=== PATIENT | male | born 1995 | race Caucasian/White ===

== ENCOUNTER 2020-10-18 08:25 | Emergency (ER) | payer SELFPAY ==
[2020-10-18 08:30] VITALS: BP 123/74; PULSE 52; RESP 20; TEMP 36; O2SAT 99
--- NOTE | 2020-10-18 08:57 | W.ED.GENAD ---
Discharge Plan Disposition Patient Disposition: HOME Condition: Stable Discharge Details Clinical Impression: Hernia, umbilical, Abnormal urinalysis Primary Care Provider: None,None ED Provider: Liane Nolasco Home Meds and New Rx's Prescriptions: New cephalexin 500 mg capsule 500 mg PO QID Qty: 14 RF: 0 Continued lamotrigine 200 mg tablet 200 mg PO HS RF: 0 acetaminophen 500 mg Tablet 1,000 mg PO QID PRNRF: 0 oxybutynin chloride 5 mg tablet 5 mg PO BID RF: 0 fluoxetine 20 mg capsule 20 mg PO DAILY RF: 0 Discharge Instructions Instructions: Umbilical Hernia (ED) Additional Instructions: Please return immediately to the emergency department if you develop any new or worsening symptoms, if your condition does not improve as expected, or if you become otherwise concerned. It is extremely important that you call soon as possible to make an appointment to be seen in follow-up for this visit by your primary care doctor. It is also extremely important that you attend your scheduled appointment with surgery this , 10/21/2020 at 1:30 PM. Referrals: De Ritchie MD [ [facility] STAFF PHYSICIAN] - Lauren Chavez MD [ [facility] STAFF PHYSICIAN] - Discharge Data Discharge Date/Time-TO BE ENTERED AT DEPARTURE: 10/18/20 09:29 Medical Decision Making Raymundo Morales is a 24-year-old man who presented to the emergency department with pain that has umbilical hernia. Exam patient is very well and nontoxic-appearing. There is focal abdominal tenderness at the site of the umbilical hernia which is approximately 1 cm in size, soft, mildly tender to palpation. There is no overlying skin change. No other abdominal tenderness. Hernia is easily reducible, protrudes rapidly during my encounter without position changes. Exam/history at this time is not consistent with incarcerated hernia, bowel ischemia, acute emergent intra-abdominal process, other acute emergent medical condition. I discussed patient with Dr. Chavez of surgery, patient to be seen by surgery , 10/21/2020 at 1:30 PM for further evaluation. UA sent from triage, shows nitrates, WBCs. I discussed findings with patient. Patient states he has no urinary symptoms, will send C/G and culture. Patient states that he feels very well and would like to be discharged at this point. I had a lengthy discussion with Patient regarding return to emergency department precautions, home care, and importance of outpatient follow-up. Pt verbalizes understanding of the plan and is amenable. Patient discharged to home with clear plan for outpatient follow-up. All questions were answered. Disposition decision was made weighing the risks and benefits of hospitalization versus outpatient treatment, the risk for further decompensation, and the patient's wishes. Medical Records Medical records reviewed: Yes I reviewed the patient's medical records. Lab Data Lab results reviewed: Yes I reviewed the patient's lab results. Labs: 10/18/20 08:02 Urine - Reflex from Ua Urine Culture - Pending Laboratory Tests Range/Units 10/18/20 08:02 Urine Color (Yellow) Yellow Urine Clarity (Clear) Sl cloudy Urine pH (5-8) 7.0 Ur Specific [place]worth (1.005-1.025) 1.020 Urine Protein (Negative) mg/dL Negative Urine Ketones (Negative) mg/dL Negative Urine Blood (Negative) Trace-intact H Urine Nitrite (Negative) Positive H Urine Bilirubin (Negative) Negative Urine Urobilinogen (Up TO 0.2) EU/dL 0.2 Ur Leukocyte Esterase (Negative) Trace H Urine RBC (0-2) HPF 0-2 Urine WBC (0-5) HPF 20-50 H Ur Epithelial Cells (Negative) HPF Negative Urine Crystals (Negative) HPF Negative Urine Bacteria (Negative) HPF Many Urine Casts (Negative) LPF Negative Urine Mucus (Negative) Negative Ur Culture Indicated? Yes Urine Glucose (Negative) mg/dL Negative HPI General Mode of arrival: ambulatory. Date/Time Provider Initiated Documentation: 10/18/20 08:45. Limitations to Documentation: no limitations. Information obtained by: patient. HPI Narrative: Raymundo Morales is a 24-year-old man without reported history of major medical problems presenting to emergency department with pain at site of his umbilical hernia. Patient reports that he had an inguinal hernia repaired approximately 1 year ago without further complication, has had umbilical hernia for years. Patient reports that umbilical hernia has not caused him pain in the past. Patient states that he was getting out of the shower this morning when he felt pain at the site of his umbilical hernia which was severe. Patient reports that he took Tylenol and pain has improved significantly. He denies any other abdominal pain or any other pain. Patient reports that he has a bowel movement typically once a week, last bowel movement was 3 days ago and normal for him. He denies fevers, cough, shortness of breath, vomiting, numbness, weakness, rash. Patient states he has been eating and drinking as usual. Related Data Home Medications Medication Instructions Recorded Confirmed acetaminophen 1,000 mg PO QID PRN 10/18/20 10/22/20 fluoxetine 20 mg PO DAILY 10/18/20 10/22/20 lamotrigine 200 mg PO HS 10/18/20 10/22/20 oxybutynin chloride 5 mg PO BID 10/18/20 10/22/20 cephalexin 500 mg PO QID #14 cap 10/22/20 Previous Rx's Medication Instructions Recorded cephalexin 500 mg PO QID #14 cap 10/22/20 Allergies Allergy/AdvReac Type Severity Reaction Status Date / Time tizanidine Allergy severe Unverified 10/21/20 13:44 body rash aspirin AdvReac Nausea Unverified 10/21/20 13:44 General Stated Complaint: Abd Prob MINO: 3 Review of Systems Narrative: Constitutional: denies fevers Eyes: denies eye pain ENT: denies ear pain, dental pain, sore throat Cardiovascular: denies chest pain Respiratory: denies SOB, cough GI: denies constipation, vomiting, diarrhea, reports abdominal pain at umbilical hernia site : denies flank pain MSK: denies back pain, neck pain, arthralgias, myalgias Skin: denies rash Neuro: denies headaches, numbness, weakness PFSH Social History Smoking risk assessment performed?: No Alcohol Intake: current Alcohol Intake frequency: a few times a month Drug use: Occasionally Substance use type: marijuana Do you feel safe at home: Yes Do you feel safe in your relationship?: Yes Exam Narrative Exam Narrative: Constitutional: well and [id number], pleasant, conversing normally HENT: head atraumatic/normocephalic/normal inspection, mucous membranes moist Eyes: conjunctiva normal, sclera normal, pupils 3mm b/l Neck: no stridor, normal ROM, trachea midline Resp: normal work of breathing, speaking in full sentences Cardio: normal rate, normal rhythm GI: abdomen soft, approximately 1 cm umbilical hernia that is easily reducible patient lying supine, soft, minimally tender to palpation (reproduces pain), no skin changes overlying hernia, no other abdominal tenderness to palpation, no rebound, no guarding, no mass, non-distended Skin: warm, dry, normal color, no rash Neuro: alert, not altered, grossly non-focal, normal tone Ext: Moving all extremities equally Psych: normal mood, normal affect, normal behavior Course Vital Signs Vital signs: Vital Signs Temperature 36.0 C L 10/18/20 08:30 Pulse 52 L 10/18/20 08:30 Respiratory Rate 20 10/18/20 08:30 Blood Pressure 123/74 10/18/20 08:30 Pulse Oximetry 99 10/18/20 08:30 Temperature 36.0 C L 10/18/20 08:30 Temperature Source Skin 10/18/20 08:30 Pulse 52 L 10/18/20 08:30 Respiratory Rate 20 10/18/20 08:30 Respiratory Effort Non-Labored 10/18/20 08:48 Blood Pressure 123/74 10/18/20 08:30 Blood Pressure Position Sitting 10/18/20 08:30 Pulse Oximetry 99 10/18/20 08:30 Oxygen Delivery Method Room Air 10/18/20 08:30 Oxygen Flow Rate 0 10/18/20 08:30 Pain Level 5 10/18/20 08:30
[2020-10-18 09:04] LABS: Bilirubin Negative (Negative); Blood Trace-intact (Negative); Clarity Sl Cloudy (Clear); Glucose Negative (Negative); Ketones Negative (Negative); Leukocyte Esterase Trace (Negative); Nitrite Positive (Negative); Urobilinogen 0.2 EU/dL (Up TO 0.2)
[2020-10-18 09:15] LABS: Bacteria Many HPF (Negative); C & S Indicated? Yes; Casts Negative LPF (Negative); Crystals Negative HPF (Negative); Epithelial Cells Negative HPF (Negative); Mucus Negative (Negative); RBC 0-2 HPF (0-2); WBC 20-50 HPF (0-5)
--- NOTE | 2020-10-21 08:27 | W.ED.FU ---
Follow Up Plan: caled and left voicemail to discuss abnormal urine culture growing e coli. no answer, asked to call back
--- NOTE | 2020-10-22 08:58 | W.ED.FU ---
Follow Up Plan: Left a voicemail on 10/22/2020 at 9:00 in the morning to return phone call
--- NOTE | 2020-10-22 09:24 | W.ED.FU ---
Prescription for Keflex sent over to [facility], discussed results with patient and given urology referral Denies fever or chills, reports persistent mild lower abdominal pain
--- NOTE | 2020-10-22 09:35 | NUR.NOTE ---
Nursing Note: Care management referral send 10/22/20 @ 0935 - [facility]
== END 2020-10-18 09:29 | disposition home or self-care (01) ==
PROVIDERS: Emergency Provider Student in an Organized Health Care Education/Training Program
DX: K42.9 Umbilical hernia without obstruction or gangrene (principal); R82.90 Unspecified abnormal findings in urine
CPT/HCPCS: 36415; 87077; 99283; 81003; 81015; 87086; 87186

== ENCOUNTER 2020-12-03 02:16 | Outpatient (CLI) | payer SELFPAY ==
[2020-12-03 10:01] LABS: Source Nasal/Nares
[2020-12-03 15:53] LABS: COVID-19 PCR Negative (Negative)
== END 2020-12-03 02:17 | disposition home or self-care (01) ==
LOC: LBO 02:16
PROVIDERS: Visit Provider Surgery
DX: Z20.822 Contact with and (suspected) exposure to COVID-19 (principal); Z01.818 Encounter for other preprocedural examination
CPT/HCPCS: 87635

== ENCOUNTER 2020-12-08 06:12 | Day surgery (SDC) | payer OTHER, SELFPAY ==
[2020-12-08] VITALS (7 sets, daily range): BP systolic 118–150; BP diastolic 72–112; PULSE 49–80; RESP 15–17; TEMP 36.4–36.7; O2SAT 96–99; BMI 19.1
--- NOTE | 2020-12-08 06:30 | ROE_ITS ---
Date of service: 12/08/20 Time of Service: 08:51 Operative Note Operative Note DATE OF PROCEDURE: 12/08/20 PRE-OP DIAGNOSIS: Umbilical hernia POST-OP DIAGNOSIS: same PROCEDURE: Primary Umbilical hernia repair SURGEON: Lauren Chavez OPTOMETRIST PRESIDENT/PRACTICE OWNER: Lynne Bertrand ANESTHESIA TYPE: Local By Surgeon, General LMA/ETT (ASA 2/ Liberty Greenfield CRNA) and Primary Nerve Block (bilateral rectus block) Refer to Anesthesia Record ESTIMATED BLOOD LOSS: 3 PATHOLOGY: none sent COMPLICATIONS: None Patient was transported to: PACU Patient's condition: stable Implants: None Indications: A// Patient has an umbilical hernia which has been progressively becoming more painful and at times difficult to reduce. Discussed the options of proceeding with umbilical hernia repair with mesh. Discussed the potential risks and benefits to include bleeding, infection, seroma, bowel injury, hematoma or allergic reaction to the mesh. Questions were answered to patient satisfaction. No guarantees were made or implied. He would like to proceed with surgical repair. Also discussed the above with his guardian Arcelia. P// Surgical repair of umbilical hernia. Findings: Small 0.5 cm umbilical hernia defect Procedure Description: After informed consent was obtained the patient was taken to the operating room and placed in a supine position. Monitors and SCDs were applied and a timeout was done. The patient's name, date of , procedure type, procedure site, allergies to medications, preoperative antibiotic, and DVT prophylaxis were all reviewed. Fire risk was assessed. Next anesthesia did a bilateral rectus block under ultrasound guidance. Please see their separate dictation. Once anesthesia was done the abdomen was prepped and draped in a sterile surgical fashion. 0.25% Bupivacaine was injected into the dermis just under the umbilicus. An incision was made with a 10 blade under the umbilicus. Dissection was done with cautery through the umbilical stalk down to the fas adrian. The hernia defect was identified and measured 0.5 cm. There was a small amount of fat through the umbilical defect. The fascia was closed with 0 vicryl figure of eight suture. 0 Vicryl was used to secure the umbilicus down to the fascia. The dermis was re-approximated with a running 4-0 Vicryl. The skin was cleaned and dried and skin affix was applied. The patient was woken up and taken back to recovery in stable condition. There were no immediate complications. Sponge, instrument and needle counts were correct at the end of the case x2.
--- NOTE | 2020-12-08 06:32 | W.PREOPHP ---
Date of service: 12/08/20 Assessment and Plan Assessment and plan (1) Hernia, umbilical: Status: Acute Assessment and plan: A// Patient has an umbilical hernia which has been progressively becoming more painful and at times difficult to reduce. Discussed the options of proceeding with umbilical hernia repair with mesh. Discussed the potential risks and benefits to include bleeding, infection, seroma, bowel injury, hematoma or allergic reaction to the mesh. Questions were answered to patient satisfaction. No guarantees were made or implied. He would like to proceed with surgical repair. Also discussed the above with his guardian Arcelia. P// Surgical repair of umbilical hernia. 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 He states that he has had the umbilical hernia for a number of years and it has progressively become more uncomfortable and at times is difficult to reduce. He would like to have this surgically repaired. He denies any erythema, swelling or pain around his umbilicus. He denies any chest pain, palpitations, dyspnea or dyspnea with exertion. He denies any personal or family history of adverse reactions to anesthesia. 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 He denies any history of [place], stroke, seizure, bleeding or clotting disorder. He denies having any metal implanted in his body. There have been no changes in his health since he was last seen Review of Systems Cardiovascular Cardiovascular: Denies chest pain, Denies chest pain at rest, Denies irregular heart rhythm, Denies dyspnea and Denies dyspnea on exertion Respiratory Respiratory: Denies cough, Denies dyspnea and Denies dyspnea on exertion Gastrointestinal Gastrointestinal: Reports as per HPI Genitourinary Genitourinary: Denies dysuria, Denies urinary incontinence and Denies urinary urgency Endocrine Endocrine: Reports system reviewed and no additional complaints, except as documented Hematologic/Lymphatic Hematologic/Lymphatic: Denies easy bruising and Denies lymphadenopathy [facility] Medical History ADHD History of urinary retention 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 Do you feel safe at home: Yes Do you feel safe in your relationship?: Yes Meds Allergies and Home Medications Allergies Allergy/AdvReac Type Severity Reaction Status Date / Time tizanidine Allergy Severe severe Verified 12/08/20 06:26 body rash aspirin AdvReac Intermediate Nausea Verified 12/08/20 06:26 Home Medications Medication Instructions Recorded Confirmed Type acetaminophen 1,000 mg PO QID PRN 10/18/20 12/08/20 History fluoxetine 20 mg PO DAILY 10/18/20 12/08/20 History lamotrigine 200 mg PO HS 10/18/20 12/08/20 History oxybutynin chloride 5 mg PO BID 10/18/20 12/08/20 History Exam Const General: healthy appearing and comfortable [facility] Head: normocephalic and atraumatic Resp Effort & Inspection: normal respiratory effort Auscultation: clear to auscultation bilaterally Cardio Rate: regular rate Rhythm: regular rhythm Heart Sounds: no click, no gallops and no murmurs GI Inspection: normal to inspection Palpation: soft, hernia umbilical and nontender
--- NOTE | 2020-12-08 06:34 | PDOC.DSDIS_ITS ---
Discharge Plan Disposition Patient Disposition: HOME Condition: Good Discharge Details Reason For Visit: umbilical hernia Attending Provider: Lauren Chavez Primary Care Provider: None,None Home Meds and New Rx's Prescriptions: Continued lamotrigine 200 mg tablet 200 mg PO HS RF: 0 acetaminophen 500 mg Tablet 1,000 mg PO QID PRNRF: 0 oxybutynin chloride 5 mg tablet 5 mg PO BID RF: 0 fluoxetine 20 mg capsule 20 mg PO DAILY RF: 0 Discharge Instructions Additional Instructions: Activity at Home after surgery: 1. Make sure you walk outside at least 4 times per day 2. You should be able to climb a flight of stairs 3. No driving while in pain or taking pain medications 4. No strenuous activity or heavy lifting for 4 weeks (open surgery) Diet, Nutrition, & wound healin. Avoid alcohol until after you are recovered from your surgery 2. Make sure to eat plenty of lean protein (meat, fish, eggs, cottage cheese, beans) 3. Eat a variety of fruits and vegetables. Eat plenty of high fiber foods to avoid constipation. 4. Drink plenty of liquids to stay hydrated and avoid constipation Pain Medications: 1. Tylenol 650mg every 6 hours as needed. 2. If a narcotic has been prescribed take as directed only for breakthrough pain For Constipation: 1. Take Milk of Magnesia or MiraLax as needed for constipation Other: 1. You may shower daily. Do not scrub the incisions 2. Do not soak the incisions for 1 week 3. You may alternate ice and heat as needed for pain and swelling Wound Care: 1. Keep the incisions clean and dry Please call our office if you develop: 1. Fevers >101.5 2. Nausea or Vomiting 3. Worsening pain 4. Redness and thick discharge from the wounds If after hours please call the Hospital at and ask to speak to the on-call surgeon Referrals: Lauren Chavez MD [ [facility] STAFF PHYSICIAN] - 12/24/20 9:30 am Activity:: as above Remove Dressings/Wound Care:: Do Not Remove Shower/Bathe:: 24 hours Diet:: As Tolerated Discharge Orders Discharge Orders: Discharge Order (Routine); Ordered 12/08/20 Ordered By: Lauren Chavez DS: Diagnosis Discharge Diagnosis (1) Hernia, umbilical: Status: Acute
[2020-12-08] MEDS: Lactated Ringers 1,000 ML 80 ML IV (06:48)
--- NOTE | 2020-12-08 07:16 | W.ANESPRE ---
General Info Date of Service Date Performed: 12/08/20 Height: 5 ft Weight: 44.5 kg Body Mass Index (BMI): 19.1 Surgical Procedure: Operation Date: 12/08/20 07:55 Proposed Procedures Side Surgeon p Herniorrhaphy Umbilical Lauren Chavez MD Meds Allergies and Home Medications Allergies Allergy/AdvReac Type Severity Reaction Status Date / Time tizanidine Allergy Severe severe Verified 12/08/20 06:26 body rash aspirin AdvReac Intermediate Nausea Verified 12/08/20 06:26 Home Medication Medication Instructions Recorded acetaminophen 1,000 mg PO QID PRN 10/18/20 fluoxetine 20 mg PO DAILY 10/18/20 lamotrigine 200 mg PO HS 10/18/20 oxybutynin chloride 5 mg PO BID 10/18/20 Current Visit Medications: Current Medications Generic Name Dose Route Start Last Admin Trade Name Freq PRN Reason Stop Dose Admin Ringer's Solution 1,000 mls @ 80 mls/hr 12/08/20 06:00 12/08/20 06:48 IV 01/06/21 23:59 80 mls/hr INFUSION MIGDALIA Administration Cefazolin Sodium/Dextrose 2 gm in 50 mls @ 100 mls/hr 12/08/20 06:00 Ancef Duplex IVPB 01/06/21 23:59 PREOP MIGDALIA Ondansetron HCl 4 mg/ Sodium 52 mls @ 200 mls/hr 12/08/20 06:35 Chloride IVPB Q6H PRN PRN IV Miscellaneous Supplies 1 each 12/08/20 06:00 Iv Access IV 01/06/21 23:59 DIRECTED MIGDALIA Oxycodone HCl 5 mg 12/08/20 06:35 Oxycodone 5 Mg Tab PO Q3H PRN PRN Pain Sodium Chloride 0 ml 12/08/20 06:00 Normal Saline Flush 10 Ml Syr IV 01/06/21 23:59 PRN PRN Sodium Chloride 0 ml 12/08/20 06:00 Normal Saline 10 Ml Vial IJ 01/06/21 23:59 DIRECTED PRN Sterile Water 0 ml 12/08/20 06:00 Water,Injection,Sterile 10 Ml Vial IJ 01/06/21 23:59 DIRECTED PRN PFSH Active Problems Active Problems: Problem Status Onset Code Hernia, umbilical K42.9 Abnormal urinalysis R82.90 Medical History Medical History ADHD History of urinary retention Meningoencephalitis Pt. states this was due to [place] virus 2014 Oppositional defiant disorder Spastic paraparesis Surgical History Surgical History Hx of gastrostomy Tobacco Smoking/Tobacco Use Status: Current every day Tobacco Type: cigarettes Alcohol Alcohol Intake: current Alcohol intake frequency: a few times a month Alcohol type: beer and hard liquor Substance Use Substance use: Daily Substance use type: marijuana Details: Smoked marijuana last night. Vital Signs and Lab Results Vital Signs Most Recent Vital Signs in EMR: Most Recent Vital Signs Temp Pulse Resp BP Pulse Ox 36.7 C 64 16 141/88 H 99 12/08/20 06:29 12/08/20 06:29 12/08/20 06:29 12/08/20 06:29 12/08/20 06:29 Lab Results Blood Type / Crossmatch: No Data to Display Complete Blood Count: No Data to Display Complete Metabolic Panel: No Data to Display Liver Function Panel: No Data to Display Coagulation Panel: No Data to Display Cardiac Panel: No Data to Display Arterial Blood Gas: No Data to Display Venous Blood Gas: No Data to Display Pancreas Panel: No Data to Display Thyroid Panel: No Data to Display Infectious Disease: Coronavirus (COVID-19)(PCR) Negative (Negative) 12/03/20 08:43 12/03/20 Coronavirus 2019 Source Nasal/Nares 12/03/20 08:43 12/03/20 Blood Cultures: No Data to Display Toxicology Panel: No Data to Display Anesthesia Assessment and Plan Anesthesia History Personal History: No History of Anesthesia Complications Family History: No Family History of Anesthesia Complications Exercise Tolerance Exercise Tolerance: Metabolic Equivalents>4 Pertinent Negatives Pertinent Negatives: No Symptoms of GERD Cardiac & Pulmonary Exam Cardiac Exam: Normal S1/S2 Heart Sounds Pulmonary Exam: Clear Bilateral Breath Sounds Airway Exam Known Difficult Airway: No Mallampati Class: 1 Mouth Opening: Normal (> 3cm) Thyromental Distance: Greater than 3 cm Neck Range of Motion: Full ROM Neck Circumference: Normal Teeth Condition: Normal Dentition ASA Classification ASA Score: ASA 2 Emergency Case?: No NPO Status NPO Status: NPO Clears >2 hours, Solids >8 hours Anesthesia Plan Resuscitation Status: Full Code Anesthesia Technique: General Anesthesia Airway Planned: LMA Pain Management: Surgeon and patient request nerve block Monitors Used: Standard Monitors
[2020-12-08] MEDS: ceFAZolin 2 GM/50 ML BAG IVPB (08:15)
--- NOTE | 2020-12-08 08:45 | W.ANESNERVE ---
Nerve Block Single Injection Procedure Date and Time Date Performed: 12/08/20 Procedure Start: 08:20 Location Where Procedure Performed Procedure Location: Operating Room Procedure Stop: 08:35 Reason Performed: Postoperative Analgesia Requesting Provider: Lauren Chavez Timeout Performed Timeout Performed: Yes Monitoring Used ECG, Blood Pressure and ETCO2 Sterility Sterility: Hand Hygiene, Surgical Cap, Surgical Mask and Sterile Gloves Sedation Given During Procedure Sedation Given (Indicate Dose Given): No Sedation given Patient Mental Status Patient Mental Status: Performed under general anesthesia Nerve Block 1st Nerve Block: Laterality: Bilateral Block Type: Rectus Sheath (Bilateral) Needle / Catheter Used: 120mm SonoPlex II Local Anesthetic Bolus (Indicate Dose Given): None, Injected in 3-5ml increments after negative blood aspiration, Half of Total block solution given into each side, Bupivacaine 0.25% Dose:: 30ml and Exparel Dose:: 10ml Additives (Indicate Dose Given): None Ultrasound: Sterile probe cover and gel used Ultrasound Image Saved?: Yes Nerve Stimulator: Not Used Paresthesia: None Procedure Tolerated: No Complications Procedure Outcome: Successful Procedure Comment: camilo greenfield crna right side reta guidry crna left side Performed By: Delmer Greenfield
[2020-12-08] MEDS: Bupivacaine 0.25% Pres-Free 30 ML VIAL (09:01)
[2020-12-08] MEDS: Lactated Ringers 1,000 ML 30 ML IV (09:02)
--- NOTE | 2020-12-08 11:57 | W.ANESPOSTOP ---
Postoperative Evaluation Date, Time and Location Date Performed: 12/08/20 Time Performed: 11:00 Patient Location: Day Surgery Unit Vital Signs Most Recent Imported Vital Signs: Most Recent Vital Signs Temp Pulse Resp BP Pulse Ox 36.6 C 52 L 17 131/82 99 12/08/20 10:20 12/08/20 10:20 12/08/20 10:20 12/08/20 10:20 12/08/20 10:20 Pain Score Most Recent Pain Score: Most Recent Pain Score Pain Level 0 12/08/20 10:20 Assessment Mental Status: Awake (Alert & Oriented to Patient Baseline) Airway and Respiratory Function: Patent airway with normal (patient baseline) respiratory exam Cardiovascular Function: Hemodynamically Stable Hydration Status: Adequately Hydrated Nausea & Vomiting: No Nausea or Vomiting Pain: Pt. Denies Any Pain Peripheral Nerve Block: Regional nerve block not resolved at time of post operative discharge
== END 2020-12-08 10:30 | disposition home or self-care (01) ==
PROVIDERS: Visit Provider Surgery
PROC: (CPT 49585; principal; 2020-12-08 07:45)
DX: K42.9 Umbilical hernia without obstruction or gangrene (principal); G89.18 Other acute postprocedural pain; Z86.19 Personal history of other infectious and parasitic diseases
CPT/HCPCS: 49585; 76942; J0690; J1885

== ENCOUNTER 2021-11-05 12:05 | Emergency (ER) | payer MEDICARE, SELFPAY ==
[2021-11-05 12:11] VITALS: BP 143/103; PULSE 92; RESP 18; TEMP 37.2; O2SAT 96
--- NOTE | 2021-11-05 12:48 | ED.GENADUL_ITS ---
Discharge Plan Disposition Patient Disposition: HOME Condition: Stable Discharge Details Clinical Impression: Chronic pain of both shoulders Primary Care Provider: None,None ED Provider: Oksana Moseley Home Meds and New Rx's Prescriptions: No Action lamotrigine 200 mg tablet 200 mg PO HS Label Comments: TAKE 1 TABLET BY MOUTH AT BEDTIME acetaminophen 500 mg Tablet 1,000 mg PO QID PRN oxybutynin chloride 5 mg tablet 5 mg PO BID Label Comments: TAKE 1 TABLET BY MOUTH TWICE DAILY FOR URINARY INCONTINENCE fluoxetine 20 mg capsule 20 mg PO DAILY Label Comments: TAKE 1 CAPSULE BY MOUTH ONCE DAILY FOR DEPRESSION albuterol sulfate 90 mcg/actuation HFA aerosol inhaler 2 inh INHALATION DAILY Label Comments: INHALE 2 PUFFS BY MOUTH EVERY 6 HOURS NEEDED (RETURN OR CALL IF NEEDED MORE THAN TWICE WEEKLY) Discharge Instructions Instructions: Shoulder Pain (ED) Additional Instructions: Your x-rays today are reassuring and show no evidence of acute concerning or significant findings. Apply ice to the affected area several times daily for 20 minutes at a time. Alternate tylenol and motrin as needed and directed for pain. Follow-up with your primary care doctor in 1 week and for referral to orthopedics if your symptoms do not improve or worsen. Return to the emergency department with any worsening or new concerning symptoms. Referrals: Clyde Deleon MD [ [facility] STAFF PHYSICIAN] - Discharge Data Discharge Date/Time-TO BE ENTERED AT DEPARTURE: 11/05/21 14:49 Discharge Physician: Oksana Moseley Medical Decision Making 25-year-old male presents with bilateral shoulder pain for the past month. Pain is worse with some movement and shoulder use. Vitals within normal limits. Patient appears comfortable and nontoxic. He has pain with range of motion in his shoulders but no obvious limitation of motion, trauma, deformity or cellulitis. He has neurovascular intact. Differential diagnosis includes shoulder strain versus sprain, tendinitis. History and presentation does not appear consistent with dislocation, fracture, rotator cuff injury or adhesive capsulitis. Patient states he would like x-rays. Will obtain bilateral shoulder x-rays and give a dose of ibuprofen and Tylenol. Imaging reviewed and negative. Patient reassessed and he feels better. Advised to alternate Tylenol and Motrin and apply ice to the affected area several times daily. Advised to follow-up with his primary care doctor and for referral to orthopedics if his symptoms do not improve or worsen. Usual and customary return precautions given prior to discharge. Medical Records Medical records reviewed: Yes I reviewed the patient's medical records. Imaging Data Radiologic Study: Radiologist's impression: XR Right Shoulder Exam date and time: 11/05/2021 1:54 PM Age: 25 years old Clinical indication: Other: Shoulder pain, R/O FX or arthritis TECHNIQUE: Imaging protocol: XR Right shoulder. Views: 2 or more views. COMPARISON: No relevant prior studies available. FINDINGS: Bones/joints: No fractures or suspicious osseous lesions are identified. Acromioclavicular and glenohumeral alignment are anatomic. Joint spaces are maintained. There are no significant osseous productive changes. The humeral head is not high-riding. Soft tissues: Periarticular soft tissues are unremarkable. IMPRESSION: No abnormality identified in the right shoulder. XR Left Shoulder Exam date and time: 11/05/2021 1:57 PM Age: 25 years old Clinical indication: Other: Shoulder pain, R/O FX or arthritis TECHNIQUE: Imaging protocol: XR Left shoulder. Views: 2 or more views. COMPARISON: No relevant prior studies available. FINDINGS: Bones/joints: No fractures or suspicious osseous lesions are identified. Acromioclavicular and glenohumeral alignment are anatomic. Joint spaces are maintained. There are no significant osseous productive changes. The humeral head is not high-riding. Soft tissues:? Periarticular soft tissues are unremarkable. IMPRESSION: No abnormality identified in the left shoulder. HPI General Mode of arrival: ambulatory . Date/Time Provider Initiated Documentation: 11/05/21 12:15 . Limitations to Documentation: no limitations . Information obtained by: patient . HPI Narrative: Patient is a 25-year-old male presents with bilateral shoulder pain for the past month. He states the pain initially started in his left shoulder and now has progressed to involve his right shoulder. He states he frequently rides his bike but denies any known injury. 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 He denies any fever, chest pain, back pain or difficulty breathing. Related Data Home Medications Medication Instructions Recorded Confirmed acetaminophen 500 mg tablet 1,000 mg PO QID PRN 10/18/20 11/05/21 fluoxetine 20 mg capsule 20 mg PO DAILY 10/18/20 12/08/20 lamotrigine 200 mg tablet 200 mg PO HS 10/18/20 12/08/20 oxybutynin chloride 5 mg tablet 5 mg PO BID 10/18/20 11/05/21 albuterol sulfate 90 mcg/actuation 2 inh inhalation DAILY 11/05/21 11/05/21 aerosol inhaler Allergies Allergy/AdvReac Type Severity Reaction Status Date / Time tizanidine Allergy Severe severe Verified 11/05/21 12:14 body rash aspirin AdvReac Intermediate Nausea Verified 11/05/21 12:14 General Stated Complaint: Orthopedic IMNO: 4 Review of Systems All systems reviewed & are unremarkable except as noted in HPI and below Constitutional Constitutional: Denies chills, Denies excessive sweating, Denies fatigue, Denies fever(s), Denies weakness and Denies weight loss Eyes Eyes: Reports system reviewed and no additional complaints, except as documented and Denies blurry vision ENT Ears, Nose, Mouth, and Throat: Denies vertigo, Denies dizziness, Denies otalgia, Denies nasal congestion, Denies sore throat and Denies throat swelling Cardiovascular Cardiovascular: Denies chest pain, Denies syncope, Denies rapid heart rate and Denies dyspnea Respiratory Respiratory: Denies chest congestion, Denies cough, Denies pain on inspiration and Denies dyspnea Gastrointestinal Gastrointestinal: Denies abdominal pain, Denies diarrhea and Denies vomiting Genitourinary Genitourinary: Denies hematuria, Denies dysuria and Denies flank pain Musculoskeletal Musculoskeletal: Denies back pain and Denies joint swelling Comments: b/l shoulder pain Integumentary/Breasts Skin/Breast: Denies lesions and Denies rash Neurologic Neurologic: Denies behavioral changes, Denies confusion, Denies vertigo, Denies dizziness, Denies syncope, Denies localized weakness and Denies weakness Psychiatric Psychiatric: Denies behavioral changes, Denies confusion and Denies depression Endocrine Endocrine: Denies excessive sweating and Denies fatigue Hematologic/Lymphatic Hematologic/Lymphatic: Denies easy bruising and Denies lymphadenopathy Allergic/Immunologic Allergic/Immunologic: Denies throat swelling PFSH All Active Problems (Updated 11/05/21 @ 14:44 by Oksana Moseley DO) Chronic pain of both shoulders (Acute) Hernia, umbilical (Acute) Abnormal urinalysis (Acute) Medical History ADHD History of urinary retention 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 Do you feel safe at home: Yes Do you feel safe in your relationship?: Yes Exam Const General: cooperative and healthy appearing Orientation: alert, awake and oriented x3 HENMT Head: normal to inspection Ears: hearing grossly normal bilaterally, external ears normal and TM's normal bilaterally General nose exam: external nose normal Face and sinus: normal facial exam Mouth: oral mucosae normal Teeth and gingiva: dentition normal Throat: posterior oropharynx normal Eyes General: appearance normal, both eyes and all related structures Eyelids: eyelids normal Pupils: PERRL EOM: EOM intact bilaterally Neck Neck: normal visual inspection Lymphatic: no lymphadenopathy noted Chest Chest: normal inspection of the chest Resp Effort & Inspection: normal respiratory effort and able to speak in complete sentences Auscultation: clear to auscultation bilaterally Cardio Rate: regular rate Rhythm: regular rhythm GI Inspection: normal to inspection Palpation: soft, not firm, no guarding, no hepatosplenomegaly, no masses and nontender Auscultation: normal bowel sounds Back/Spine/Pelvis Back: no CVA tenderness Skin General skin exam: no rashes or lesions noted Neuro General: patient alert and patient awake Cognition: normal cognition Speech: speech normal Gait: normal gait Motor: muscle tone normal throughout Sensory Exam: no sensory deficits noted Extrem General: normal to inspection, full ROM and capillary refill normal Other: Pain in bilateral shoulders with range of motion. No obvious clicking, limitation of motion, resistance or cellulitis, trauma, rash or lesions. Bilateral distal upper extremity pulses intact. Psych Appearance: grossly normal Mental Status: mental status grossly normal Speech and Movement: speech and movement normal Affect: normal affect Thought Process: normal Course Vital Signs Vital signs: Vital Signs Temperature 99.0 F 11/05/21 12:11 Pulse 92 H 11/05/21 12:11 Respiratory Rate 18 11/05/21 12:11 Blood Pressure 143/103 H 11/05/21 12:11 Pulse Oximetry 96 11/05/21 12:11 Temperature 99.0 F 11/05/21 12:11 Temperature Source Temporal Artery Scan 11/05/21 12:11 Pulse 92 H 11/05/21 12:11 Respiratory Rate 18 11/05/21 12:11 Respiratory Effort Non-Labored 11/05/21 12:16 Blood Pressure 143/103 H 11/05/21 12:11 Blood Pressure Position Sitting 11/05/21 12:11 Pulse Oximetry 96 11/05/21 12:11 Oxygen Delivery Method Room Air 11/05/21 12:11 Oxygen Flow Rate 0 11/05/21 12:11
--- NOTE | 2021-11-05 13:00 | DI.RAD_ITS ---
Exam(s) XR SHOULDER RT COMPLETE 2+V EXAM: XR SHOULDER RT COMPLETE 2+V CLINICAL HISTORY: shoulder pain, r/o fracture/arthritis. TECHNIQUE: 2D digital imaging was performed. COMPARISON: No exams were available for comparison FINDINGS: Five views No evidence of fracture or dislocation. No abnormal soft tissue calcifications. Subacromial space a ppears unremarkable. No obvious degenerative changes. Bone density normal. No osseous lesions. Ip silateral clavicle unremarkable. AC joint unremarkable IMPRESSION: No significant findings. DATA REPOSITORY: RADIATION DOSE DELIVERED:
--- NOTE | 2021-11-05 13:00 | DI.RAD_ITS ---
Exam(s) XR SHOULDER LT COMPLETE 2+V EXAM: XR SHOULDER LT COMPLETE 2+V CLINICAL HISTORY: shoulder pain, r/o fracture/arthritis. TECHNIQUE: 2D digital imaging was performed. COMPARISON: CR,XR XR SHOULDER RT COMPLETE 2+V from 11/05/2021 FINDINGS: Five views No evidence of fracture or dislocation no abnormal soft tissue calcifications. Subacromial space nava ears unremarkable. There are no degenerative changes in the glenohumeral and AC joints. Bone densit y normal. No osseous lesions. Ipsilateral clavicle unremarkable. IMPRESSION: No significant radiographic findings. DATA REPOSITORY: RADIATION DOSE DELIVERED:
[2021-11-05] MEDS: Acetaminophen 500 MG TAB 1000 MG PO (13:12)
[2021-11-05] MEDS: Ibuprofen 600 MG TAB PO (13:12)
--- NOTE | 2021-11-05 14:36 | DI.VRAD_ITS ---
PROCEDURE INFORMATION: Exam: XR Right Shoulder Exam date and time: 11/05/2021 1:54 PM Age: 25 years old Clinical indication: Other: Shoulder pain, R/O FX or arthritis TECHNIQUE: Imaging protocol: XR Right shoulder. Views: 2 or more views. COMPARISON: No relevant prior studies available. FINDINGS: Bones/joints: No fractures or suspicious osseous lesions are identified. Acromioclavicular and glenohumeral alignment are anatomic. Joint spaces are maintained. There are no significant osseous productive changes. The humeral head is not high-riding. Soft tissues: Periarticular soft tissues are unremarkable. IMPRESSION: No abnormality identified in the right shoulder. Dictated and Authenticated by: Jenifer Ford MD. Ordering:BRYAN Gandhi MD
--- NOTE | 2021-11-05 14:36 | DI.VRAD_ITS ---
PROCEDURE INFORMATION: Exam: XR Left Shoulder Exam date and time: 11/05/2021 1:57 PM Age: 25 years old Clinical indication: Other: Shoulder pain, R/O FX or arthritis TECHNIQUE: Imaging protocol: XR Left shoulder. Views: 2 or more views. COMPARISON: No relevant prior studies available. FINDINGS: Bones/joints: No fractures or suspicious osseous lesions are identified. Acromioclavicular and glenohumeral alignment are anatomic. Joint spaces are maintained. There are no significant osseous productive changes. The humeral head is not high-riding. Soft tissues: Periarticular soft tissues are unremarkable. IMPRESSION: No abnormality identified in the left shoulder. Dictated and Authenticated by: Jenifer Ford MD. Ordering:BRYAN Gandhi MD
== END 2021-11-05 14:49 | disposition home or self-care (01) ==
PROVIDERS: Emergency Provider Physician Assistant
DX: M25.511 Pain in right shoulder (principal); M25.512 Pain in left shoulder; G89.29 Other chronic pain
CPT/HCPCS: 99284; 73030; 99283

== ENCOUNTER 2023-02-22 00:29 | Emergency (ER) | payer SELFPAY ==
--- NOTE | 2023-02-22 00:55 | ED.GENADUL_ITS ---
Discharge Plan Disposition Patient Disposition: Home Condition: Good Discharge Details Clinical Impression: Ewing catheter problem Primary Care Provider: [facility] ED Provider: Raymundo Ybarra Home Meds and New Rx's Prescriptions: No Action lamotrigine 200 mg tablet 200 mg PO HS Patient Comments: TAKE 1 TABLET BY MOUTH AT BEDTIME acetaminophen 500 mg Tablet 1,000 mg PO QID PRN oxybutynin chloride 5 mg tablet 5 mg PO BID Patient Comments: TAKE 1 TABLET BY MOUTH TWICE DAILY FOR URINARY INCONTINENCE fluoxetine 20 mg capsule 20 mg PO DAILY Patient Comments: TAKE 1 CAPSULE BY MOUTH ONCE DAILY FOR DEPRESSION albuterol sulfate 90 mcg/actuation HFA aerosol inhaler 2 inh INHALATION DAILY Patient Comments: INHALE 2 PUFFS BY MOUTH EVERY 6 HOURS NEEDED (RETURN OR CALL IF NEEDED MORE THAN TWICE WEEKLY) Discharge Instructions Instructions: Ewing Catheter Placement and Care (ED) Additional Instructions: At this time the new Ewing catheter has been placed. Please leave this in until you are able to follow-up with your urologist at [place]. If you notice any worsening of your symptoms, or any new symptoms such as vomiting, diarrhea, fever, chills, shortness of breath, chest pain, numbness, weakness, or fainting , please return immediately to the emergency department for reevaluation. Please follow up with your primary care provider as soon as possible for reassessment and reevaluation. As always, it was a pleasure participating in your medical care today. Medical Decision Making This is a very pleasant 27-year-old male with a past medical history of riki West Nile virus in 2014 leading to subsequent bladder/urinary challenges, which eventually led to the understanding that he was not completely emptying. He is seeing urology in [place] and was started on a protocol of regular self catheterizations. Unfortunately this did not fix the emptying issue, and so he was transitioned today at his urology appointment to having a Ewing catheter with recommendation for 12 to 24-hour use. He went home this evening and then at about 11 PM he performed his first attempt for Ewing catheterization with a balloon tip. When he inflated the balloon he had notable pain, and eventually deflated the balloon. Unfortunately he was not able to urinate after this, and did notice a small amount of bleeding. Since then he has not been able to urinate at all, and came to the ER for further assessment. He denies any significant pain at this time. The bleeding was very minimal. He denies any chanelle hemorrhage. He denies any abdominal pain or vomiting. No other complaints at this time. Physical exam demonstrates well-appearing male, no acute distress. Genital exam demonstrates a small amount of blood in the polyp, but no other active bleeding pain or tenderness otherwise. Suspect that the patient unfortunately inflated the balloon in an improper anatomical location causing some mild urethral injury. We did attempt to contact [facility] u[facility], however upon discussion with [facility] it appears that no one is on-call for urology tonight. We will place Ewing catheter and keep it in for urethral injury healing, with plan for outpatient follow-up. Ewing catheter was placed by nursing staff. Patient tolerated this very well. No complications. There was some blood but this was washed out without difficulty. Ewing catheter flowing well. Leg bag attached. Recommend close follow-up with urology on an outpatient basis. I have extensively reviewed the treatment plan and discharge instructions with the patient and their family. I have addressed all patient concerns at this time. The patient and family was made aware of what symptoms to monitor for that would warrant a return to the emergency department. Discussed the plan with the patient and family, they demonstrate verbal understanding and agreement with our assessment and plan at this time. The documentation in this chart was dictated using [employer] dictation software. Please excuse any dictation errors. HPI General Date/Time Provider Initiated Documentation: 02/22/23 00:36 . HPI Narrative: This is a very pleasant 27-year-old male with a past medical history of riki West Nile virus in 2015 leading to subsequent bladder/urinary challenges, which eventually led to the understanding that he was not completely emptying. He is seeing urology in [place] and was started on a protocol of regular self catheterizations. Unfortunately this did not fix the emptying issue, and so he was transitioned today at his urology appointment to having a Ewing catheter with recommendation for 12 to 24-hour use. He went home this evening and then at about 11 PM he performed his first attempt for Ewing catheterization with a balloon tip. When he inflated the balloon he had notable pain, and eventually deflated the balloon. Unfortunately he was not able to urinate after this, and did notice a small amount of bleeding. Since then he has not been able to urinate at all, and came to the ER for further assessment. He denies any significant pain at this time. The bleeding was very minimal. He denies any chanelle hemorrhage. He denies any abdominal pain or vomiting. No other complaints at this time. Related Data Home Medications Medication Instructions Recorded Confirmed acetaminophen 500 mg tablet 1,000 mg PO QID PRN 10/18/20 11/05/21 fluoxetine 20 mg capsule 20 mg PO DAILY 10/18/20 12/08/20 lamotrigine 200 mg tablet 200 mg PO HS 10/18/20 12/08/20 oxybutynin chloride 5 mg tablet 5 mg PO BID 10/18/20 11/05/21 albuterol sulfate 90 mcg/actuation 2 inh inhalation DAILY 11/05/21 11/05/21 aerosol inhaler Allergies Allergy/AdvReac Type Severity Reaction Status Date / Time tizanidine Allergy Severe severe Verified 11/05/21 12:14 body rash aspirin AdvReac Intermediate Nausea Verified 11/05/21 12:14 General MINO: 4 Review of Systems All systems reviewed & are unremarkable except as noted in HPI and below PFSH All Active Problems (Updated 02/22/23 @ 01:55 by Raymundo Ybarra DO) Ewing catheter problem (Acute) Hernia, umbilical (Acute) Abnormal urinalysis (Acute) Medical History ADHD History of urinary retention 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 Do you feel safe at home: Yes Do you feel safe in your relationship?: Yes Exam Narrative Exam Narrative: 1.Const: Well-nourished, Well-developed, appearing stated age 2.Eyes: PERRL, no conjunctival injection, and symmetrical lids. 3.ENT: Atraumatic external nose and ears. Moist MM. Neck: Symmetric, trachea midline, No thyromegaly. 4.CVS: +S1/S2, No murmurs or gallops. Peripheral pulses 2+ and equal in all extremities. Brisk capillary refill in all extremities. 5.RESP: Unlabored respiratory effort. Clear to auscultation bilaterally. No wheezes rales or rhonchi 6.GI: Soft, Nontender/Nondistended, No hepatosplenomegaly. No guarding or rebound. Genital exam was performed with nurse at bedside. Exam demonstrates unremarkable penis, no signs of significant trauma or active bleeding. There is a small amount of blood noted in the patient's polyp. No tenderness over the urethra, urethral meatus, shaft, or testicles. No suprapubic mass. 7.MSK: Normocephalic/Atraumatic, Extremities w/o deformity or ttp No cyanosis or clubbing, Normal movement of all extremities 8.Skin: Warm, Dry. No rashes or lesions. 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 Sensation grossly intact, no focal neurologic deficits. 10.Psych: (AAO) x3. Appropriate mood and affect
[2023-02-22 01:27] VITALS: BP 118/69; PULSE 73; RESP 16; TEMP 36.4; O2SAT 98
[2023-02-22 02:15] VITALS: BP 120/67; PULSE 75; RESP 18; TEMP 36.6; O2SAT 99
== END 2023-02-22 02:36 | disposition home or self-care (01) ==
PROVIDERS: Emergency Provider Student in an Organized Health Care Education/Training Program
DX: T83.84XA Pain due to genitourinary prosthetic devices, implants and grafts, initial encounter (principal); R33.9 Retention of urine, unspecified; F17.210 Nicotine dependence, cigarettes, uncomplicated
CPT/HCPCS: 51702; 99283

== ENCOUNTER 2023-04-21 20:51 | Observation (INO) | payer SELFPAY ==
[2023-04-21] VITALS (22 sets, daily range): BP systolic 125–153; BP diastolic 58–76; PULSE 65–121; RESP 9–16; TEMP 36.3–39.4; O2SAT 95–98
[2023-04-21] MEDS: Acetaminophen 500 MG TAB 1000 MG PO (21:14)
--- NOTE | 2023-04-21 21:19 | ED.GENADUL_ITS ---
Discharge Plan Disposition Condition: Fair Discharge Details Chief Complaint: Urinary Admit Date/Time: 04/21/23 23:36 Admit Provider: Ketan Montes Attending Provider: Ketan Montes Primary Care Provider: Rizwana Romano ED Provider: Shea Bain Discharge Instructions Diet:: As Tolerated Discharge Orders Discharge Orders: Discharge Order (Routine); Ordered 04/23/23 Ordered By: Trinh Castro Discharge Data Discharge Date/Time-TO BE ENTERED AT DEPARTURE: 04/22/23 00:32 Medical Decision Making 27-year-old male, well in appearance for tachycardic so I checked a tympanic temperature which was 103.8, blood cultures and labs were ordered for further evaluation, leukocytosis 31,000 with a left shift 26% neutrophil count Ewing catheter was changed and urinalysis positive for infection, suspect pyelonephritis CT does not show obstruction, patient does appear to have Ewing catheter in ureter, this was retracted replaced Patient will likely need urology reassessment of Ewing catheter, seems that he is followed by [facility] Ceftriaxone was initiated, however will transition to Zosyn and vancomycin given unusual anatomy and significant leukocytosis Patient will need admission to the hospital for observation, case discussed with Dr. Montes, he will admit patient to his service, patient remains hemodynamically stable, he meets sepsis criteria, of note I did initially forget to order a lactate, will add this on and COVID test for admission Patient is agreeable to admission at this time HPI General Date/Time Provider Initiated Documentation: 04/21/23 20:57 . HPI Narrative: This 27-year-old male with history of spastic paraparesis, oppositional defiant disorder ADHD, urinary retention presents with report of having Ewing catheter replaced on 18 April at [facility] and has had trouble with draining and leaking from the catheter for the past several days. Denies any pain complaints. Has had chills denies fever. Denies any additional complaints at this time. Related Data Home Medications Medication Instructions Recorded Confirmed acetaminophen 500 mg tablet 1,000 mg PO QID PRN 10/18/20 04/21/23 albuterol sulfate 90 mcg/actuation 2 inh inhalation DAILY 11/05/21 04/21/23 aerosol inhaler budesonide-formoterol HFA 160 2 puff inhalation ONCE 04/21/23 04/21/23 mcg-4.5 mcg/actuation aerosol inhaler clonidine HCl 0.1 mg tablet 0.1 mg PO BID PRN 04/21/23 04/21/23 ciprofloxacin HCl 500 mg tablet 500 mg PO BID #10 tabs 04/23/23 Previous Rx's Medication Instructions Recorded ciprofloxacin HCl 500 mg tablet 500 mg PO BID #10 tabs 04/23/23 Allergies Allergy/AdvReac Type Severity Reaction Status Date / Time tizanidine Allergy Severe severe Verified 04/21/23 21:20 body rash aspirin AdvReac Intermediate Nausea Verified 04/21/23 21:20 General Stated Complaint: Urinary MINO: 5 PFSH All Active Problems (Updated 04/22/23 @ 06:44 by Ketan Montes) SIRS (systemic inflammatory response syndrome) (Acute) UTI (urinary tract infection) due to urinary indwelling catheter (Acute) Hernia, umbilical (Acute) Abnormal urinalysis (Acute) Medical History Spastic paraparesis History of urinary retention 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 Housing: apartment Do you feel safe at home: Yes Do you feel safe in your relationship?: Yes Course Vital Signs Vital signs: Vital Signs Temperature 36.3 C L 04/21/23 20:56 Pulse 121 H 04/21/23 20:56 Respiratory Rate 16 04/21/23 20:56 Blood Pressure 141/71 H 04/21/23 20:56 Pulse Oximetry 95 04/21/23 20:56 Temperature 39.4 C H 04/21/23 21:15 Temperature Source Tympanic 04/21/23 21:15 Pulse 121 H 04/21/23 20:56 Respiratory Rate 16 04/21/23 20:56 Respiratory Effort Normal 04/21/23 20:59 Blood Pressure 141/71 H 04/21/23 20:56 Pulse Oximetry 95 04/21/23 20:56 Oxygen Delivery Method Room Air 04/21/23 20:56 Oxygen Flow Rate 0 04/21/23 20:56 Pain Level 0 04/21/23 20:56 Comment Taken by EMELY 04/21/23 21:15 Lab/Test Results Lab/Test Results: 04/21/23 21:09 Blood Blood Culture - Pending 04/21/23 21:09 Blood Blood Culture - Pending Critical Care Time Critical Care Time Attestation: Approximately 45 minutes surgical care time secondary to acute pyelonephritis 27-year-old male, meeting sepsis criteria, requiring IV antibiotics, telemetry monitoring, CT imaging interpretation, diagnostic lab review and interpretation and ultimately admission to the hospital
[2023-04-21] MEDS: Lactated Ringers 1,000 ML 1000 ML IV (21:31)
[2023-04-21 21:40] LABS: Abs Immature Grans 0.18 10^3/uL (0.0-0.06); Absolute Neutrophil Count 26.52 10^3/uL (1.2-6.7); Basophils % 0.3; Eosinophils % 0.1; HCT 43.4 % (40.0-50.0); HGB 14.7 g/dL (13.5-17.5); Immature Grans % 0.6; Lymphocytes % 7.3; MCH 28.8 pg (27.0-33.0); MCHC 33.9 % (32.0-36.0); MCV 85 fL (80-95); MPV 8.6 fL (8.0-11.0); Monocytes % 8.6; Neutrophils % 83.1; Platelet Count 266 10^3/uL (130-400); RBC 5.11 10^6/uL (4.36-5.78); RDW 12.8 % (11.8-14.1); RDW-SD 39.8 fL
--- NOTE | 2023-04-21 21:45 | DI.CT_ITS ---
Exam(s) CT ABDOMEN PELVIS WO EXAM: CT ABDOMEN PELVIS WO CLINICAL HISTORY: flank pain, dysuria. TECHNIQUE: Imaging Protocol: Axial computed tomography images with coronal and sagittal reformatted images were created and reviewed. COMPARISON: No exams were available for comparison FINDINGS: Lung Bases: Normal where visualized. Liver: Normal density. No measurable mass. Gallbladder and biliary tract: No radiodense calculus. No biliary ductal dilation. Pancreas: No abnormal calcifications or inflammatory process. Spleen: Normal size. Kidneys: Normal size, contour and axis.Moderate right hydronephrosis. Mild right hydronephrosis. No masses seen. Adrenal glands: No mass is seen. Lymph nodes: Within normal limits. Vasculature: Abdominal aorta non-dilated. Bladder: Ewing catheter noted which is either inflated in the distal left ureter or within a bladder diverticulum. This should be pulled back into the bladder. No stone. Nearly empty. Severe wall th ickening. This may indicate cystitis. No stone visible. No visible mass. Bowel: No obstruction. No bowel wall thickening. Peritoneal cavity: No ascites.No free air. No focal collection. No mesenteric inflammatory response. Reproductive organs: Within normal limits. Bones: Unremarkable for age. Soft Tissues: Within normal limits. IMPRESSION: Severe bladder wall thickening likely represent cystitis. Ewing catheter balloon is inflated in the distal right ureter versus diverticulum. This appears to be causing right hydronephrosis. Minimal l eft hydronephrosis also present. RADIATION DOSE DELIVERED: Total DLP Total DLP DATA REPOSITORY: All CT scans at this facility are submitted to the National Radiology Data Registry (NRDR) Dose Index Registry (DIR) with the [employer] [place] [employer] (A[employer]). RADIATION OPTIMIZATION: All CT scans at this facility use at least one of these dose optimization te chniques: automated exposure control; mA and/or kV adjustment per patient size (includes targeted exa ms where dose is matched to clinical indication); or iterative reconstruction.
[2023-04-21 21:55] LABS: Absolute Eosinophil Count 0.03 10^3/uL (0.0-0.7); Absolute Lymphocyte Count 2.33 10^3/uL (1.2-3.4); Absolute Monocyte Count 2.74 10^3/uL (0.1-0.8)
[2023-04-21 21:56] LABS: ALT 19 U/L (16-63); AST 11 U/L (15-37); Albumin 4.1 g/dL (3.4-5.0); Alkaline Phosphatase 51 U/L (46-116); Anion Gap 9.3 mmol/L (3-11); BUN 16 mg/dL (7-18); Bilirubin, Total 0.6 mg/dL (0.2-1.0); CO2 25.7 mmol/L (21.0-32.0); CREATININE 0.9 mg/dL (0.70-1.30); Calcium 9.8 mg/dL (8.5-10.1); Chloride 97 mmol/L (98-107); Diff Comment Agrees w/ Instrument; Estimated GFR 121.55 (mL/min/1.73m2); Glucose 115 mg/dL (74-106); Lipase 22 U/L (16-77); Potassium 3.8 mmol/L (3.5-5.1); Sodium 132 mmol/L (136-145); Total Protein 8.5 g/dL (6.4-8.2); WBC 31.91 10^3/uL (4.4-10.8)
[2023-04-21] MEDS: Lidocaine 2% Jelly 6 ML SYR (22:00)
[2023-04-21] MEDS: cefTRIAXone 2 GM/50 ML BAG IVPB (22:01)
[2023-04-21 22:23] LABS: Bilirubin Negative (Negative); Blood Moderate (Negative); Clarity Sl Cloudy (Clear); Glucose Negative (Negative); Ketones 15 mg/dL (Negative); Leukocyte Esterase Small (Negative); Nitrite Positive (Negative); Urobilinogen 0.2 mg/dL (Up to 0.2)
[2023-04-21 22:29] LABS: Bacteria Few HPF (Negative); C & S Indicated? Yes; Casts Negative LPF (Negative); Crystals Negative HPF (Negative); Mucus Negative (Negative); WBC >50 HPF (0-5)
[2023-04-21 22:30] LABS: Epithelial Cells Negative HPF (Negative)
--- NOTE | 2023-04-21 22:38 | ED.PROG_ITS ---
Date of service: 04/21/23 Time of Service: 22:38 Medical Decision Making Attestation: I saw this patient in conjunction with the PA. I provided a [id number] evaluation secondary to medical complexity. Patient has neurogenic bladder secondary to prior [place] infection. Has chronic indwelling Ewing catheter. Presented for evaluation of leaking Ewing catheter. ED work-up concerning for significantly elevated white blood cell count, fever. Ewing catheter was exchanged. Urinalysis is infected. Cultures have been obtained, broad-spectrum antibiotics have been ordered. Patient is tachycardic but otherwise hemodynamically stable. A CT scan was ordered to evaluate for intra-abdominal abscess or other source of infection. Ewing appears to track up dilated ureter. Patient will be admitted for further IV antibiotics. CRITICAL CARE Upon my evaluation, this patient had a high probability of imminent or life- threatening deterioration due to sepsis which required my direct attention, intervention, and personal management. I have personally provided 32 minutes of critical care time exclusive of time spent on separately billable procedures. Time includes review of laboratory data, radiology results, discussion with consultants, and monitoring for potential decompensation. Interventions were performed as documented above Medical Records Medical records reviewed: Yes I reviewed the patient's medical records. Lab Data Lab results reviewed: Yes I reviewed the patient's lab results. Discharge Plan Discharge Details Chief Complaint: Urinary Primary Care Provider: Unknown,Unknown ED Provider: Shea Bain Home Meds and New Rx's Prescriptions: No Action budesonide-formoterol 160-4.5 mcg/actuation HFA aerosol inhaler 2 puff INHALATION ONCE Patient Comments: INHALE 2 PUFFS BY MOUTH TWICE DAILY FOR COPD MAINTENENCE clonidine HCl 0.1 mg tablet 0.1 mg PO BID PRN Patient Comments: TAKE 1 TABLET BY MOUTH TWICE DAILY NEEDED FOR ANXIETY / AGITATION acetaminophen 500 mg Tablet 1,000 mg PO QID PRN albuterol sulfate 90 mcg/actuation HFA aerosol inhaler 2 inh INHALATION DAILY Patient Comments: INHALE 2 PUFFS BY MOUTH EVERY 6 HOURS NEEDED (RETURN OR CALL IF NEEDED MORE THAN TWICE WEEKLY)
--- NOTE | 2023-04-21 23:00 | DI.VRAD_ITS ---
PROCEDURE INFORMATION: Exam: CT Abdomen And Pelvis Without Contrast Exam date and time: 04/21/2023 10:16 PM Age: 27 years old Clinical indication: Abdominal pain; Other: Unspecified; Patient HX: Flank pain, dysuria TECHNIQUE: Imaging protocol: Computed tomography of the abdomen and pelvis without contrast. COMPARISON: No relevant prior studies available. FINDINGS: Lungs: The lungs are normal. There is no evidence of focal pulmonary consolidation. Pleural spaces: There are no pleural effusions present. Heart: The cardiac structures are normal. There is no evidence of pneumothorax. Liver: There are no focal liver lesions present. There is no evidence of intrahepatic or extrahepatic biliary ductal dilation. Gallbladder and bile ducts: There is no cholelitiasis, wall thickening or pericholecystic fluid to suggest cholecystitis. The gallbladder is contracted but otherwise normal. Pancreas: The pancreas is normal. Spleen: The spleen is enlarged. Adrenal glands: The adrenal glands are normal. Kidneys and ureters: There is moderate right and mild left hydronephrosis. There is a Ewing catheter present tip of which lies in a bladder diverticulum and/or dilated distal right ureter. Stomach and bowel: There is no evidence of intestinal obstruction. No diverticulosis is present. There is moderate increased colonic fecal content. The colon is mildly distended. These findings suggest a moderate degree of constipation. Clinical correlation recommended. There is fecalization of the small bowel. Consider chronic constipation.There are enlarged nonspecific lymph nodes in the mesenteric fat. This nonspecific mesenteric adenitis can be secondary to a variety of bacterial, viral, or other inflammatory processes. Appendix: A normal appendix is identified. There is no evidence of distention or periappendiceal inflammation to suggest appendicitis. Intraperitoneal space: There is no free intraperitoneal air. There is no evidence of free intraperitoneal or pelvic fluid. There are no soft tissue masses or fluid collections. Vasculature: The aorta is normal without evidence of significant atherosclerosis or aneurysmal disease. The peripheral arterial vascular system visualized is unremarkable. The portal venous system visualized is unremarkable. The venous system visualized is unremarkable. Lymph nodes: There is no evidence of lymphadenopathy. Urinary bladder: There is severe bladder wall thickening. Consider cystitis. Reproductive: The prostate is normal. Bones/joints: The skeletal structures and soft tissues show no evidence of fracture or other acute processes. Soft tissues: The extra-abdominal soft tissues are normal. There is a nonobstructing left inguinal hernia containing fat and possibly a small amount of mesentery. IMPRESSION: 1. There is a Ewing catheter present tip of which lies in a duodenal diverticulum and/or dilated distal right ureter. 2. There is severe bladder wall thickening. Consider cystitis. 3. There is fecalization of the small bowel. Consider chronic constipation. 4. There are enlarged nonspecific lymph nodes in the mesenteric fat. This nonspecific mesenteric adenitis can be secondary to a variety of bacterial, viral, or other inflammatory processes. Dictated and Authenticated by: Hilton Woodard MD. Ordering:DAYAN Valdivia MD
--- NOTE | 2023-04-21 23:12 | NUR.NOTE ---
ED Provider wanted to see if de dios cath could be retracted. with provider at bedside. balloon was deflated and de dios was retracted. De Dios was partially reinflated with 1 ML. PT stated he was having pain. balloon was deflated again and advanced forward. balloon was reinflated with 10ml. PT tolerated well Nursing Note:
[2023-04-21] MEDS: PIPERACILLIN/TAZO 3.375 GM in Normal Saline 50 ML IVPB (23:36)
[2023-04-21 23:42] LABS: Lactate 0.7 mmol/L (0.6-1.4)
[2023-04-21 23:45] LABS: Source Nasal/Nares
[2023-04-22] VITALS (9 sets, daily range): BP systolic 126–161; BP diastolic 66–80; PULSE 60–66; RESP 16–22; TEMP 36.3–37.2; O2SAT 96–99
[2023-04-22 00:15] LABS: COVID-19 PCR Negative (Negative)
[2023-04-22] MEDS: VANCOMYCIN 1,250 MG in Normal Saline 250 ML 166.6666 MG IVPB (00:17)
--- NOTE | 2023-04-22 01:54 | W.PM.HP.N ---
Date of service: 04/21/23 Time of Service: 23:00 Assessment and Plan Assessment and plan (1) UTI (urinary tract infection) due to urinary indwelling catheter: Start date: 04/21/23 Status: Acute Assessment and plan: This is a 27-year-old gentleman with chronic indwelling Ewing catheter who came to the hospital for catheter change was found to have symptoms which may happen at risk for sepsis. He was initiated on ceftriaxone then switched to Zosyn with vancomycin having a significant fever and elevation of his WBCs. Patient feels well and does wish to go home soon as possible. He has been hemodynamically stable but had some fluids overnight. He will continue Zosyn with vancomycin and follow-up urine culture converted to oral therapy as appropriate. He is high risk for complications with chronic indwelling Ewing catheter. He is a full code. Qualifiers: Indwelling urinary catheter type: indwelling urethral catheter Encounter type: initial encounter Qualified Code(s): T83.511A - Infection and inflammatory reaction due to indwelling urethral catheter, initial encounter; N39.0 - Urinary tract infection, site not specified (2) SIRS (systemic inflammatory response syndrome): Start date: 04/21/23 Status: Acute Assessment and plan: Patient did have significant fever with elevated WBC and a source of infection in his urinary tract with indwelling Ewing catheter. He did not meet strict criteria for SIRS without tachypnea but did have slight tachycardia. Patient treated aggressively to avoid progression. Procalcitonin should be added to admission lab and follow-up appropriately. Follow-up urine culture and adjust antibiotic therapy appropriately. The patient is being treated well IV fluids will be decreased. 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 Patient does ambulate with a cane and is very functional. 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 Patient is functioning well walking with a cane. He appears to be fairly independent. 50 History of Present Illness History of Present Illness Chief Complaint: Ewing leakage 4 days Narrative: This is a 27-year-old male patient who has a chronic indwelling Ewing catheter secondary to was now virus infection with left arm essentially paralyzed from the waist down though the patient does walk with a cane at this time. He has some return of motor strength in lower extremities. He does present to the hospital with leakage around his Ewing for days and wanted his catheter changed. He was found to have fever with severe leukocytosis and initiated on aggressive antibiotic therapy because of possibility of early SIRS. 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 He offers no other new complaints and does want to go home soon as possible. He is a full code. Review of Systems Narrative: 13 point review of systems otherwise unrevealing or stable. [facility] All Active Problems (Updated 04/22/23 @ 06:44 by Ketan Montes) SIRS (systemic inflammatory response syndrome) (Acute) UTI (urinary tract infection) due to urinary indwelling catheter (Acute) Hernia, umbilical (Acute) Abnormal urinalysis (Acute) Medical History Spastic paraparesis History of urinary retention Meningoencephalitis Pt. states this was due to west nile virus 2015 Oppositional defiant disorder ADHD Surgical History Hx of gastrostomy Social History Smoking/Tobacco Use Status: Current every day Tobacco Type: cigarettes Smoking risk assessment performed?: Yes Alcohol Intake: current Alcohol Intake frequency: a few times a month Alcohol type: beer and hard liquor Drug use: Daily Substance use type: marijuana Details: Smoked marijuana last night. Housing: apartment Do you feel safe at home: Yes Do you feel safe in your relationship?: Yes Meds Allergies and Home Medications Allergies Allergy/AdvReac Type Severity Reaction Status Date / Time tizanidine Allergy Severe severe Verified 04/21/23 21:20 body rash aspirin AdvReac Intermediate Nausea Verified 04/21/23 21:20 Home Medications Medication Instructions Recorded Confirmed Type acetaminophen 500 mg tablet 1,000 mg PO QID PRN 10/18/20 04/21/23 History albuterol sulfate 90 mcg/actuation 2 inh inhalation DAILY 11/05/21 04/21/23 History aerosol inhaler budesonide-formoterol HFA 160 2 puff inhalation ONCE 04/21/23 04/21/23 History mcg-4.5 mcg/actuation aerosol inhaler clonidine HCl 0.1 mg tablet 0.1 mg PO BID PRN 04/21/23 04/21/23 History Exam Narrative Exam Narrative: General: Patient appears appropriate for age, very thin and sitting up in bed in no acute distress. He is alert and oriented x3. HEENT: Normocephalic, eyes with pupils equal react light symmetrically, extraocular movement tachycardia sclera anicteric. Oropharynx with moist mucosa and normal dentition. Neck: Supple without JVD. Back: Stooped posture without CVA tenderness. Lungs: Clear to auscultation percussion with no focalizing rales or rhonchi. Heart: Regular rate and rhythm with no murmurs or gallops appreciated. Abdomen: Scaphoid contour, soft nontender to palpation with no guarding or rebound. No palpable hepatosplenomegaly. Genitalia/rectal: Exam deferred. Patient does have indwelling Ewing catheter which was changed upon admission. Extremities: Without clubbing, cyanosis or pitting edema. Patient has slight nonpitting edema lower extremities with decreased musculature secondary to paraplegia. Good cap refill. Neuro: Cranial nerves II through XII gross intact, decreased motor strength lower extremities the patient does move against gravity and slight resistance (patient does ambulate using a cane). Spasticity lower extremities with clonus which is chronic. Upper extremity strength is normal. No tremor. Skin: Normal color, warm and dry. Psych: Euphoric affect and normal mood. No abnormal thought processes. Remote and recent memory intact. Results Imaging Imaging Studies: Exam: CT Abdomen And Pelvis Without Contrast Exam date and time: 04/21/2023 10:16 PM Age: 27 years old Clinical indication: Abdominal pain; Other: Unspecified; Patient HX: Flank pain, dysuria TECHNIQUE: Imaging protocol: Computed tomography of the abdomen and pelvis without contrast. COMPARISON: No relevant prior studies available. FINDINGS: Lungs: The lungs are normal. There is no evidence of focal pulmonary consolidation. Pleural spaces: There are no pleural effusions present. Heart: The cardiac structures are normal. There is no evidence of pneumothorax. Liver: There are no focal liver lesions present. There is no evidence of intrahepatic or extrahepatic biliary ductal dilation. Gallbladder and bile ducts: There is no cholelitiasis, wall thickening or pericholecystic fluid to suggest cholecystitis. The gallbladder is contracted but otherwise normal. Pancreas: The pancreas is normal. Spleen: The spleen is enlarged. Adrenal glands: The adrenal glands are normal. Kidneys and ureters: There is moderate right and mild left hydronephrosis. There is a Ewing catheter present tip of which lies in a bladder diverticulum and/or dilated distal right ureter. Stomach and bowel: There is no evidence of intestinal obstruction. No diverticulosis is present. There is moderate increased colonic fecal content. The colon is mildly distended. These findings suggest a moderate degree of constipation. Clinical correlation recommended. There is fecalization of the small bowel. Consider chronic constipation.There are enlarged nonspecific lymph nodes in the mesenteric fat. This nonspecific mesenteric adenitis can be secondary to a variety of bacterial, viral, or other inflammatory processes. Appendix: A normal appendix is identified. There is no evidence of distention or periappendiceal inflammation to suggest appendicitis. Intraperitoneal space: There is no free intraperitoneal air. There is no evidence of free intraperitoneal or pelvic fluid. There are no soft tissue masses or fluid collections. Vasculature: The aorta is normal without evidence of significant atherosclerosis or aneurysmal disease. The peripheral arterial vascular system visualized is unremarkable. The portal venous system visualized is unremarkable. The venous system visualized is unremarkable. Lymph nodes: There is no evidence of lymphadenopathy. Urinary bladder: There is severe bladder wall thickening. Consider cystitis. Reproductive: The prostate is normal. Bones/joints: The skeletal structures and soft tissues show no evidence of fracture or other acute processes. Soft tissues: The extra-abdominal soft tissues are normal. There is a nonobstructing left inguinal hernia containing fat and possibly a small amount of mesentery. IMPRESSION: 1. There is a Ewing catheter present tip of which lies in a bladder diverticulum and/or dilated distal right ureter. 2. There is severe bladder wall thickening. Consider cystitis. 3. There is fecalization of the small bowel. Consider chronic constipation. 4. There are enlarged nonspecific lymph nodes in the mesenteric fat. This nonspecific mesenteric adenitis can be secondary to a variety of bacterial, viral, or other inflammatory processes. Labs 04/22/23 06:18 04/21/23 21:20 Labs: Laboratory Results - last 24 hr 04/21/23 04/21/23 04/21/23 21:20 22:15 23:33 WBC 31.91 H* RBC 5.11 Hgb 14.7 Hct 43.4 MCV 85 MCH 28.8 MCHC 33.9 RDW 12.8 Plt Count 266 MPV 8.6 Immature Gran % 0.6 Neutrophils % 83.1 Lymphocytes % 7.3 Monocytes % 8.6 Eosinophils % 0.1 Basophils % 0.3 Nucleated RBC % 0.0 Absolute Neutrophils 26.52 H Absolute Lymphocytes 2.33 Absolute Monocytes 2.74 H Absolute Eosinophils 0.03 Absolute Basophils 0.10 VBG Lactate 0.7 Sodium 132 L Potassium 3.8 Chloride 97 L Carbon Dioxide 25.7 Anion Gap 9.3 BUN 16 Creatinine 0.9 Est GFR (CKD-EPI 2020) 121.55 Glucose 115 H Calcium 9.8 Total Bilirubin 0.6 AST 11 L ALT 19 Alkaline Phosphatase 51 Total Protein 8.5 H Albumin 4.1 Lipase 22 Urine Color Yellow Urine Clarity Sl Cloudy Urine pH 6.0 Ur Specific [place] 1.020 Urine Protein >=300 H Urine Ketones 15 H Urine Blood Moderate H Urine Nitrite Positive H Urine Bilirubin Negative Urine Urobilinogen 0.2 Ur Leukocyte Esterase Small H Urine RBC 5-10 H Urine WBC >50 H Ur Epithelial Cells Negative Urine Crystals Negative Urine Bacteria Few Urine Casts Negative Urine Mucus Negative Ur Culture Indicated? Yes Urine Glucose Negative COVID-19 Source SARS-CoV-2 (PCR) 04/21/23 23:40 WBC RBC Hgb Hct MCV MCH MCHC RDW Plt Count MPV Immature Gran % Neutrophils % Lymphocytes % Monocytes % Eosinophils % Basophils % Nucleated RBC % Absolute Neutrophils Absolute Lymphocytes Absolute Monocytes Absolute Eosinophils Absolute Basophils VBG Lactate Sodium Potassium Chloride Carbon Dioxide Anion Gap BUN Creatinine Est GFR (CKD-EPI 2020) Glucose Calcium Total Bilirubin AST ALT Alkaline Phosphatase Total Protein Albumin Lipase Urine Color Urine Clarity Urine pH Ur Specific [place] Urine Protein Urine Ketones Urine Blood Urine Nitrite Urine Bilirubin Urine Urobilinogen Ur Leukocyte Esterase Urine RBC Urine WBC Ur Epithelial Cells Urine Crystals Urine Bacteria Urine Casts Urine Mucus Ur Culture Indicated? Urine Glucose COVID-19 Source Nasal/Nares SARS-CoV-2 (PCR) Negative Last Vital Signs Temp 36.5 C 04/22/23 00:38 Pulse 64 04/22/23 00:38 Resp 22 04/22/23 00:38 BP 132/79 04/22/23 00:38 Pulse Ox 98 04/22/23 00:38 Time Spent Time spent with Patient: 55-74 minutes Time was spent: preparing to see the patient(eg.review tests), obtaining and/or reviewing separately otained hiistory, ordering medications,tests, procedures, indepentently interpreting results and care coordination
[2023-04-22] MEDS: Normal Saline 1,000 ML 125 ML IV ×2 (02:42→21:57)
[2023-04-22] MEDS: PIPERACILLIN/TAZO 3.375 GM in Normal Saline 50 ML IVPB ×4 (06:01→23:53)
[2023-04-22 06:37] LABS: HCT 39.3 % (40.0-50.0); HGB 13.7 g/dL (13.5-17.5); MCH 29.5 pg (27.0-33.0); MCHC 34.9 % (32.0-36.0); MCV 85 fL (80-95); MPV 8.6 fL (8.0-11.0); Platelet Count 236 10^3/uL (130-400); RBC 4.65 10^6/uL (4.36-5.78); RDW-SD 40.2 fL; WBC 24.59 10^3/uL (4.4-10.8)
[2023-04-22 06:59] LABS: ALT 13 U/L (16-63); AST 11 U/L (15-37); Albumin 3.5 g/dL (3.4-5.0); Alkaline Phosphatase 45 U/L (46-116); Anion Gap 9.6 mmol/L (3-11); BUN 12 mg/dL (7-18); Bilirubin, Total 0.5 mg/dL (0.2-1.0); CO2 24.4 mmol/L (21.0-32.0); CREATININE 0.8 mg/dL (0.70-1.30); Calcium 9.2 mg/dL (8.5-10.1); Chloride 104 mmol/L (98-107); Estimated GFR 125.95 (mL/min/1.73m2); Glucose 116 mg/dL (74-106); Potassium 3.7 mmol/L (3.5-5.1); Sodium 138 mmol/L (136-145); Total Protein 7.4 g/dL (6.4-8.2)
[2023-04-22 07:59] LABS: Procalcitonin 0.2 ng/mL
[2023-04-22] MEDS: Acetaminophen 325 MG TAB PO ×2 (08:43→17:38)
[2023-04-22] MEDS: Budesonide/Formoterol 160/4.5 6 GM 60 PUFF INH IH ×2 (09:23→20:22)
[2023-04-22] MEDS: VANCOMYCIN/WATER (PEG) 1 GM/200 ML BAG IVPB ×2 (10:31→21:53)
--- NOTE | 2023-04-22 10:53 | INITIAL_ITS ---
Date of service: 04/22/23 Time of Service: 10:53 Care Management Initial Assmt Initial Assessment REASON FOR HOSPITALIZATION:: uti PREVIOUS FUNCTIONAL STATUS/SOCIAL/FAMILY SUPPORTS:: Balta lives in an apartment in [place], [place] with 2 friends. He is the youngest of 10 children but only one, Pavithra, is a biological sibling. He is close to Pavithra and to 2 of his step brothers but does not see the others often. Balta is also close to his Dad and he talks to him almost every day; his mother when he was 14. Balta is on disability. He enjoys [employer] and being with friends. He ambulates with the use of a cane and is independent with ADLs. CURRENT FUNCTIONAL STATUS:: Balta was sitting up in bed when CM met with him. He was quite open and talkative and engaged well with CM. Balta presented to the ED because his de dios catheter was leaking. He was found to have leukocytosis (WBC 31.91) and had a one time fever of 39.4 C and so was admitted. Today his vital signs are stable, he is afebrile and he reports feeling well. He verbalized wanting to go home as soon as possible although hre has been told it will not be today. ADVANCE DIRECTIVES:: none Has patient been provided with info about the portal/API?: Yes Did the patient sign up for the portal?: No CODE STATUS:: Full Code INSURANCE COVERAGE / FINANCIAL ISSUES:: [facility] health Plans [facility] CURRENT HOME/COMMUNITY SERVICES/EQUIPMENT:: [employer], SSDI PRIMARY CARE PHYSICIAN:: Rizwana Romano at [facility] in [place] POTENTIAL DISCHARGE NEEDS:: follow up with PCP and plan of care PATIENT/FAMILY EDUCATION NEEDS:: Review discharge instructions, limitations, follow up plan, discuss [employer] TRANSPORTATION:: via private vehicle with friends PLAN:: Anticipate Balta will be discharged home with no new services. He will follow up with his community providers and plan of care and transport with friends vs [facility]. CM will follow and continue to assess for discharge needs. [facility] All Active Problems (Updated 04/22/23 @ 06:44 by Ketan Montes) SIRS (systemic inflammatory response syndrome) (Acute) UTI (urinary tract infection) due to urinary indwelling catheter (Acute) Hernia, umbilical (Acute) Abnormal urinalysis (Acute) Medical History Spastic paraparesis History of urinary retention 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 Housing: apartment Do you feel safe at home: Yes Do you feel safe in your relationship?: Yes
--- NOTE | 2023-04-22 14:55 | W.PM.PROGNOT ---
Date of Service Date of service: 04/22/23 Time of Service: 14:55 Assessment and Plan Assessment and plan (1) UTI (urinary tract infection) due to urinary indwelling catheter: Status: Acute Assessment and plan: continue Zosyn with vancomycin while urine culture pending. 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 Patient does ambulate with a cane and is very functional. (3) Meningoencephalitis: Assessment and plan: 2015 with [place] Nile virus now with sequela of spastic paraplegia. Patient is functioning well walking with a cane. He appears to be fairly independent. discharge to home with no services once medically stable discussed with DR Bangura Subjective Subjective Patient reports: no new complaints; denies voiding w/o difficulty (de dios contintues to leak, and is still draining well also) Exam Const General: cooperative and healthy appearing Orientation: alert, awake and oriented x3 HENMT Head: normal to inspection Eyes General: appearance normal, both eyes and all related structures Eyelids: eyelids normal Pupils: PERRL EOM: EOM intact bilaterally Neck Neck: normal visual inspection Chest Chest: normal inspection of the chest Resp Effort & Inspection: normal respiratory effort and able to speak in complete sentences Auscultation: clear to auscultation bilaterally Cardio Rate: regular rate Rhythm: regular rhythm GI Inspection: normal to inspection Palpation: soft and nontender Auscultation: normal bowel sounds Back/Spine/Pelvis Back: no CVA tenderness Skin General skin exam: no rashes or lesions noted Neuro General: patient alert and patient awake Cognition: normal cognition Speech: speech normal Gait: normal gait Motor: muscle tone normal throughout Sensory Exam: no sensory deficits noted Extrem General: normal to inspection, full ROM and capillary refill normal Psych Appearance: grossly normal Mental Status: mental status grossly normal Speech and Movement: speech and movement normal Affect: normal affect Thought Process: normal Objective Last Vital Signs Temp 37.2 C 04/22/23 11:00 Pulse 64 04/22/23 11:00 Resp 18 04/22/23 11:00 BP 129/75 04/22/23 11:00 Pulse Ox 99 04/22/23 11:00 Laboratory Results - last 24 hr 04/21/23 04/21/23 04/21/23 21:20 22:15 23:33 WBC 31.91 H* RBC 5.11 Hgb 14.7 Hct 43.4 MCV 85 MCH 28.8 MCHC 33.9 RDW 12.8 Plt Count 266 MPV 8.6 Immature Gran % 0.6 Neutrophils % 83.1 Lymphocytes % 7.3 Monocytes % 8.6 Eosinophils % 0.1 Basophils % 0.3 Nucleated RBC % 0.0 Absolute Neutrophils 26.52 H Absolute Lymphocytes 2.33 Absolute Monocytes 2.74 H Absolute Eosinophils 0.03 Absolute Basophils 0.10 VBG Lactate 0.7 Sodium 132 L Potassium 3.8 Chloride 97 L Carbon Dioxide 25.7 Anion Gap 9.3 BUN 16 Creatinine 0.9 Est GFR (CKD-EPI 2020) 121.55 Glucose 115 H Calcium 9.8 Magnesium Total Bilirubin 0.6 AST 11 L ALT 19 Alkaline Phosphatase 51 Total Protein 8.5 H Albumin 4.1 Lipase 22 Procalcitonin 0.2 Urine Color Yellow Urine Clarity Sl Cloudy Urine pH 6.0 Ur Specific [place] 1.020 Urine Protein >=300 H Urine Ketones 15 H Urine Blood Moderate H Urine Nitrite Positive H Urine Bilirubin Negative Urine Urobilinogen 0.2 Ur Leukocyte Esterase Small H Urine RBC 5-10 H Urine WBC >50 H Ur Epithelial Cells Negative Urine Crystals Negative Urine Bacteria Few Urine Casts Negative Urine Mucus Negative Ur Culture Indicated? Yes Urine Glucose Negative COVID-19 Source SARS-CoV-2 (PCR) 04/21/23 04/22/23 23:40 06:18 WBC 24.59 H RBC 4.65 Hgb 13.7 Hct 39.3 L MCV 85 MCH 29.5 MCHC 34.9 RDW 13.0 Plt Count 236 MPV 8.6 Immature Gran % Neutrophils % Lymphocytes % Monocytes % Eosinophils % Basophils % Nucleated RBC % Absolute Neutrophils Absolute Lymphocytes Absolute Monocytes Absolute Eosinophils Absolute Basophils VBG Lactate Sodium 138 Potassium 3.7 Chloride 104 Carbon Dioxide 24.4 Anion Gap 9.6 BUN 12 Creatinine 0.8 Est GFR (CKD-EPI 2020) 125.95 Glucose 116 H Calcium 9.2 Magnesium 2.0 Total Bilirubin 0.5 AST 11 L ALT 13 L Alkaline Phosphatase 45 L Total Protein 7.4 Albumin 3.5 Lipase Procalcitonin Urine Color Urine Clarity Urine pH Ur Specific [place] Urine Protein Urine Ketones Urine Blood Urine Nitrite Urine Bilirubin Urine Urobilinogen Ur Leukocyte Esterase Urine RBC Urine WBC Ur Epithelial Cells Urine Crystals Urine Bacteria Urine Casts Urine Mucus Ur Culture Indicated? Urine Glucose COVID-19 Source Nasal/Nares SARS-CoV-2 (PCR) Negative Time Spent with Patient Time Spent with Patient: 25-34 minutes Time was spent: preparing to see the patient(eg.review tests), obtaining and/or reviewing separately [facility], ordering medications,tests, procedures, indepentently interpreting results and counseling the patient
[2023-04-22] MEDS: Normal Saline Flush 10 ML SYR IVP ×2 (21:52→23:11)
[2023-04-23 00:49] VITALS: BP 136/84; PULSE 68; RESP 16; O2SAT 99
[2023-04-23 03:40] VITALS: BP 154/89; PULSE 71; RESP 16; TEMP 36.4; O2SAT 99
[2023-04-23] MEDS: PIPERACILLIN/TAZO 3.375 GM in Normal Saline 50 ML IVPB (06:34)
[2023-04-23] MEDS: Normal Saline 1,000 ML 125 ML IV (06:34)
[2023-04-23 06:47] LABS: Abs Immature Grans 0.07 10^3/uL (0.0-0.06); Absolute Eosinophil Count 0.18 10^3/uL (0.0-0.7); Absolute Monocyte Count 1.49 10^3/uL (0.1-0.8); Basophils % 0.3; Eosinophils % 1.2; HCT 38.6 % (40.0-50.0); HGB 13.1 g/dL (13.5-17.5); Immature Grans % 0.5; Lymphocytes % 10.5; MCHC 33.9 % (32.0-36.0); MCV 86 fL (80-95); MPV 8.9 fL (8.0-11.0); Monocytes % 10.1; Neutrophils % 77.4; Platelet Count 225 10^3/uL (130-400); RBC 4.51 10^6/uL (4.36-5.78); RDW 12.9 % (11.8-14.1); WBC 14.73 10^3/uL (4.4-10.8)
[2023-04-23 06:49] LABS: Absolute Basophil Count 0.04 10^3/uL (0.0-0.2); Absolute Lymphocyte Count 1.55 10^3/uL (1.2-3.4)
[2023-04-23 07:04] LABS: Anion Gap 7.6 mmol/L (3-11); BUN 8 mg/dL (7-18); CO2 24.4 mmol/L (21.0-32.0); CREATININE 0.8 mg/dL (0.70-1.30); Calcium 9.1 mg/dL (8.5-10.1); Chloride 107 mmol/L (98-107); Estimated GFR 125.95 (mL/min/1.73m2); Glucose 86 mg/dL (74-106); Potassium 3.8 mmol/L (3.5-5.1); Sodium 139 mmol/L (136-145)
--- NOTE | 2023-04-23 07:30 | W.UROLOGYCON ---
[facility] All Active Problems (Updated 04/22/23 @ 06:44 by Ketan Montes) SIRS (systemic inflammatory response syndrome) (Acute) UTI (urinary tract infection) due to urinary indwelling catheter (Acute) Hernia, umbilical (Acute) Abnormal urinalysis (Acute) Medical History Spastic paraparesis History of urinary retention 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 Housing: apartment Do you feel safe at home: Yes Do you feel safe in your relationship?: Yes Exam Narrative Exam Narrative: I searched his records in the [facility] EMR. He has not been under the care of their urology team. I do not have access to any of his records from the urology service at [facility]. Results Last Vital Signs Temp 36.4 C L 04/23/23 03:40 Pulse 71 04/23/23 03:40 Resp 16 04/23/23 03:40 BP 154/89 H 04/23/23 03:40 Pulse Ox 99 04/23/23 03:40 Labs 04/23/23 06:15 04/23/23 06:15 Labs: Laboratory Results - last 24 hr 04/21/23 04/23/23 21:20 06:15 WBC 14.73 H RBC 4.51 Hgb 13.1 L Hct 38.6 L MCV 86 MCH 29.0 MCHC 33.9 RDW 12.9 Plt Count 225 MPV 8.9 Immature Gran % 0.5 Neutrophils % 77.4 Lymphocytes % 10.5 Monocytes % 10.1 Eosinophils % 1.2 Basophils % 0.3 Nucleated RBC % 0.0 Absolute Neutrophils 11.40 H Absolute Lymphocytes 1.55 Absolute Monocytes 1.49 H Absolute Eosinophils 0.18 Absolute Basophils 0.04 Sodium 139 Potassium 3.8 Chloride 107 Carbon Dioxide 24.4 Anion Gap 7.6 BUN 8 Creatinine 0.8 Est GFR (CKD-EPI 2020) 125.95 Glucose 86 Calcium 9.1 Magnesium 2.0 Procalcitonin 0.2
[2023-04-23 08:19] VITALS: BP 120/70; PULSE 97; RESP 18; TEMP 37; O2SAT 97
[2023-04-23] MEDS: Budesonide/Formoterol 160/4.5 6 GM 60 PUFF INH IH (08:33)
[2023-04-23] MEDS: VANCOMYCIN/WATER (PEG) 1 GM/200 ML BAG IVPB (10:07)
--- NOTE | 2023-04-23 11:26 | DSE_ITS ---
Date of service: 04/23/23 Time of Service: 11:27 DS: Diagnosis Discharge Diagnosis (1) UTI (urinary tract infection) due to urinary indwelling catheter: Status: Acute (2) Spastic paraparesis: (3) Meningoencephalitis: Discharge Plan Disposition Patient Disposition: Against Medical Advice Condition: Fair Discharge Details Reason For Visit: Pylonephritis, Neurogenic Bladder Admit Date/Time: 04/21/23 23:36 Admit Provider: Ketan Montes Attending Provider: Ketan Montes Primary Care Provider: Rizwana Romano [facility] Course Hospital Course: This is a 27-year-old male patient with a 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 He is followed by urology in [facility]. He presented to the emergency department secondary to leakage around his Ewing catheter and wanted the catheter exchanged. His work-up in the emergency department was significant for fever and leukocytosis up to 30. He was started on broad- spectrum antibiotics and admitted to the hospital while cultures were pending. He did receive IV boluses with downward trending of his lactic acid and white count neither which had normalized as of yet. He continued to receive vancomycin and Zosyn. Hemodynamically he remained stable and afebrile. I had put in a consult for Dr. Ritchie to evaluate him but today he decided he wanted to leave AGAINST MEDICAL ADVICE. His urine cultures are growing Pseudomonas but there are no sensitivities available yet I will down step him to ciprofloxacin and did advise him to follow-up with his urology team as soon as possible. Blood cultures have been negative to date. A prescription for ciprofloxacin was sent to [facility] at his request. He is discharged to home with no services discharge discussed with DR Bangura Home Meds and New Rx's Prescriptions: New ciprofloxacin HCl 500 mg tablet 500 mg PO BID Qty: 10 0RF Continued budesonide-formoterol 160-4.5 mcg/actuation HFA aerosol inhaler 2 puff INHALATION ONCE Patient Comments: INHALE 2 PUFFS BY MOUTH TWICE DAILY FOR COPD MAINTENENCE clonidine HCl 0.1 mg tablet 0.1 mg PO BID PRN Patient Comments: TAKE 1 TABLET BY MOUTH TWICE DAILY NEEDED FOR ANXIETY / AGITATION acetaminophen 500 mg Tablet 1,000 mg PO QID PRN albuterol sulfate 90 mcg/actuation HFA aerosol inhaler 2 inh INHALATION DAILY Patient Comments: INHALE 2 PUFFS BY MOUTH EVERY 6 HOURS NEEDED (RETURN OR CALL IF NEEDED MORE THAN TWICE WEEKLY) Discharge Instructions Instructions: Catheter-associated Urinary Tract Infection (DC) Referrals: Nelly Kendall [ NON-[facility] STAFF PHYSICIAN] - (call your urology office for follow up with Holley Borjas APRN as previous established) Rizwana Romano [Primary Care Provider] - Diet:: As Tolerated Discharge Orders Discharge Orders: Discharge Order (Routine); Ordered 04/23/23 Ordered By: Trinh Castro Discharge Data Discharge Date/Time-TO BE ENTERED AT DEPARTURE: 04/23/23 11:48 Discharge Comment: AMA DS: Summary Time Spent with Patient providing and/or coordinating discharge services: Less than 30 minutes Status at Discharge Functional status at discharge: uses cane/walker Overall status at discharge: patient is back to baseline Mental Status: mental status grossly normal Speech and Movement: speech and movement normal Mood: congruent mood Affect: normal affect Exam Const General: cooperative and healthy appearing Orientation: alert, awake and oriented x3 HENMT Head: normal to inspection Eyes General: appearance normal, both eyes and all related structures Eyelids: eyelids normal Pupils: PERRL EOM: EOM intact bilaterally Neck Neck: normal visual inspection Chest Chest: normal inspection of the chest Resp Effort & Inspection: normal respiratory effort and able to speak in complete sentences Auscultation: clear to auscultation bilaterally Cardio Rate: regular rate Rhythm: regular rhythm GI Inspection: normal to inspection Palpation: soft and nontender Auscultation: normal bowel sounds Back/Spine/Pelvis Back: no CVA tenderness Skin General skin exam: no rashes or lesions noted Neuro General: patient alert and patient awake Cognition: normal cognition Speech: speech normal Gait: normal gait Motor: muscle tone normal throughout Sensory Exam: no sensory deficits noted Extrem General: normal to inspection, full ROM and capillary refill normal Psych Appearance: grossly normal Mental Status: mental status grossly normal Speech and Movement: speech and movement normal Mood: congruent mood Affect: normal affect Thought Process: normal DS: Data Vitals/I&O Vitals and I&O: Vital Signs Temperature 37.0 C 04/23/23 08:19 Temperature Source Tympanic 04/23/23 08:19 Pulse 97 H 04/23/23 08:19 Pulse Rhythm Regular 04/23/23 10:14 Pulse 63 04/22/23 00:15 Respiratory Rate 18 04/23/23 08:19 Respiratory Effort Normal, Non-Labored 04/23/23 10:14 Respiratory Depth Normal 04/23/23 10:14 Respiratory Pattern Normal 04/23/23 10:14 Blood Pressure 120/70 04/23/23 08:19 Blood Pressure Mean 89 04/22/23 00:15 Pulse Oximetry 97 04/23/23 08:19 Oxygen Delivery Method Room Air 04/23/23 08:19 Oxygen Flow Rate 0 04/23/23 08:19 Pain Level 0 04/23/23 10:14 Comment Taken by EMELY 04/21/23 21:15 Intake & Output 04/22/23 04/22/23 04/23/23 11:59 23:59 11:59 Intake Total 1569.167 / 2110.833 541.666 / 2110.833 1110 / 1110 Output Total 1400 / 2400 1000 / 2400 1200 / 1200 Balance 169.167 / -289.167 -458.334 / -289.167 -90 / -90 Weight 50.938 kg Intake: IV 1329.167 / 1870.833 541.666 / 1925.663 9900 / 1110 Oral 240 / 240 Output: Urine 1400 / 2400 1000 / 2400 1200 / 1200 Other: Urine Color Pale Pale Pale Yellow Yellow Urine Appearance Clear Clear Clear Comment Coude 70 ml bladder scan Data Completed and Pending Labs on day of discharge: Labs from last 24 hours 04/23/23 06:15 WBC 14.73 H RBC 4.51 Hgb 13.1 L Hct 38.6 L MCV 86 MCH 29.0 MCHC 33.9 RDW 12.9 Plt Count 225 MPV 8.9 Immature Gran % 0.5 Neutrophils % 77.4 Lymphocytes % 10.5 Monocytes % 10.1 Eosinophils % 1.2 Basophils % 0.3 Nucleated RBC % 0.0 Absolute Neutrophils 11.40 H Absolute Lymphocytes 1.55 Absolute Monocytes 1.49 H Absolute Eosinophils 0.18 Absolute Basophils 0.04 Sodium 139 Potassium 3.8 Chloride 107 Carbon Dioxide 24.4 Anion Gap 7.6 BUN 8 Creatinine 0.8 Est GFR (CKD-EPI 2020) 125.95 Glucose 86 Calcium 9.1 Magnesium 2.0 Preliminary micro results at discharge 04/21/23 22:15 Urine Culture - Preliminary Urine - Reflex from Ua Pseudomonas aeruginosa Gram Positive Anahi 04/21/23 21:25 Blood Culture - Preliminary Blood NO GROWTH 24 HOURS 04/21/23 21:20 Blood Culture - Preliminary Blood NO GROWTH 24 HOURS PFSH All Active Problems (Updated 04/22/23 @ 06:44 by Ketan Montes) SIRS (systemic inflammatory response syndrome) (Acute) UTI (urinary tract infection) due to urinary indwelling catheter (Acute) Hernia, umbilical (Acute) Abnormal urinalysis (Acute) Medical History Spastic paraparesis History of urinary retention 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 Housing: apartment Do you feel safe at home: Yes Do you feel safe in your relationship?: Yes Time Spent with Patient Time Spent with Patient: <45 minutes Time was spent: preparing to see the patient(eg.review tests), ordering medications,tests, procedures and counseling the patient
--- NOTE | 2023-04-23 12:52 | NUR.NOTE ---
Pt requesting to leave upon start of shift stating I am leaving this hospital today regardless. Pt was informed Dr. Ritchie will not see him until 5pm today and urine cultures were still pending, to which pt decided he would contact his Urologist and leave AMA. AMA papers signed and given to aircraft engine mechanic. IV removed. Pt informed abx will be sent to pharmacy in [place]. Escorted downstairs to main exit by RN. Nursing Note:
== END 2023-04-23 11:48 | disposition left against medical advice (07) ==
LOC: ER 23:41 → MS 04-22 00:33
PROVIDERS: Internal Medicine; Admitting Provider Family Medicine; Emergency Provider Physician Assistant; PCP Family Medicine; Visit Provider Family Medicine
DX: T83.511A Infection and inflammatory reaction due to indwelling urethral catheter, initial encounter (principal); N39.0 Urinary tract infection, site not specified; G82.20 Paraplegia, unspecified; B94.1 Sequelae of viral encephalitis; F90.9 Attention-deficit hyperactivity disorder, unspecified type; F91.3 Oppositional defiant disorder; F12.90 Cannabis use, unspecified, uncomplicated; F17.210 Nicotine dependence, cigarettes, uncomplicated; R33.9 Retention of urine, unspecified; B96.5 Pseudomonas (aeruginosa) (mallei) (pseudomallei) as the cause of diseases classified elsewhere
CPT/HCPCS: 00123; 36415; 80048; 80053; 83690; 84145; 85027; 87040; 87077; 87635; 94640; 96361; 96365; 96366; 96367; 96375; 99291; 99292; 74176; 81003; 81015; 83605; 83735; 85025; 87086; 87186; 94664; 99222; 99238; G0378; J2543

== ENCOUNTER 2023-12-26 21:57 | Emergency (ER) | payer SELFPAY ==
[2023-12-26 22:01] VITALS: BP 120/64; PULSE 50; RESP 16; TEMP 36.9; O2SAT 99
--- NOTE | 2023-12-26 22:34 | ED.GENADUL_ITS ---
Discharge Plan Disposition Patient Disposition: Home Condition: Good Discharge Details Clinical Impression: Pain, dental Primary Care Provider: Rizwana Romano ED Provider: Raymundo Ybarra Home Meds and New Rx's Prescriptions: New amoxicillin 500 mg capsule 500 mg PO TID 7 Days Qty: 21 0RF Discontinued ciprofloxacin HCl 500 mg tablet 500 mg PO BID Qty: 10 0RF No Action budesonide-formoterol 160-4.5 mcg/actuation HFA aerosol inhaler 2 puff INHALATION ONCE Patient Comments: INHALE 2 PUFFS BY MOUTH TWICE DAILY FOR COPD MAINTENENCE clonidine HCl 0.1 mg tablet 0.1 mg PO BID PRN Patient Comments: TAKE 1 TABLET BY MOUTH TWICE DAILY NEEDED FOR ANXIETY / AGITATION acetaminophen 500 mg Tablet 1,000 mg PO QID PRN albuterol sulfate 90 mcg/actuation HFA aerosol inhaler 2 inh INHALATION DAILY Patient Comments: INHALE 2 PUFFS BY MOUTH EVERY 6 HOURS NEEDED (RETURN OR CALL IF NEEDED MOR E THAN TWICE WEEKLY) Discharge Instructions Instructions: Dental Pain ED Additional Instructions: At this time you have an infection in your teeth. You have declined a dental block. Please do not hesitate to come back if you would like me to perform this at a later time. Please take 800 mg of ibuprofen every 6 hours and 1000 mg of Tylenol every 6 hours to help with the inflammation and pain. These are the maximum doses. Please take the antibiotic as directed to help with the infection in your tooth. Please use the dental list that we have provided to contact the dentist for prompt follow-up and evaluation for tooth removal. If you notice any worsening of your symptoms, or any new symptoms such as difficulty swallowing, difficulty breathing, vomiting, diarrhea, fever, chills, shortness of breath, chest pain, numbness, weakness, or fainting , please return immediately to the emergency department for reevaluation. Please follow up with your primary care provider as soon as possible for reassessment and reevaluation. As always, it was a pleasure participating in your medical care today. Referrals: Rizwana Romano [Primary Care Provider] - [facility] General Date/Time Provider Initiated Documentation: 12/26/23 22:04 . HPI Narrative: This is a very pleasant 28-year-old male with a past medical history of riki West Nile virus in 2014 leading to subsequent bladder/urinary challenges which eventually led to incomplete voiding leading to regular self- catheterization, mild reactive airway disease, spastic paraparesis, a history of meningeal encephalitis, oppositional defiant disorder, ADHD, prior gastrostomy. Who presents today for evaluation of right upper right lower tooth pain. Pain has been present for the last 6 months in his teeth, and is gradually been worsening. He is not on any antibiotics. He denies fever or chills or difficulty breathing or drinking or eating. He denies any difficulty swallowing. No fever at home. He has not seen a dentist secondary to a lack of insurance. He has been taking Tylenol without significant improvement. No other complaints at this time. Related Data Home Medications ?Medication ?Instructions ?Recorded ?Confirmed acetaminophen 500 mg tablet 1,000 mg PO QID PRN 10/18/20 04/21/23 albuterol sulfate 90 mcg/actuation 2 inh inhalation DAILY 11/05/21 04/21/23 aerosol inhaler budesonide-formoterol HFA 160 2 puff inhalation ONCE 04/21/23 04/21/23 mcg-4.5 mcg/actuation aerosol inhaler clonidine HCl 0.1 mg tablet 0.1 mg PO BID PRN 04/21/23 04/21/23 amoxicillin 500 mg capsule 500 mg PO TID 7 days #21 caps 12/26/23 Previous Rx's ?Medication ?Instructions ?Recorded amoxicillin 500 mg capsule 500 mg PO TID 7 days #21 caps 12/26/23 Allergies Allergy/AdvReac Type Severity Reaction Status Date / Time tizanidine Allergy Severe severe Verified 04/21/23 21:20 body rash aspirin AdvReac Intermediate Nausea Verified 04/21/23 21:20 General Stated Complaint: DentalOral MINO: 4 Review of Systems All systems reviewed & are unremarkable except as noted in HPI and below Exam Narrative Exam Narrative: 1.Const: Well-nourished, Well-developed, appearing stated age 2.Eyes: PERRL, no conjunctival injection, and symmetrical lids. 3.ENT: Atraumatic external nose and ears. Moist MM. Neck: Symmetric, trachea midline, No thyromegaly. Poor dentition in the right upper and right lower dental de [place]antos, no periapical abscess. No evidence of Ludewig's angina. No swelling or edema. 4.CVS: +S1/S2, No murmurs or gallops. Peripheral pulses 2+ and equal in all extremities. Brisk capillary refill in all extremities. 5.RESP: Unlabored respiratory effort. Clear to auscultation bilaterally. No wheezes rales or rhonchi 6.GI: Soft, Nontender/Nondistended, No hepatosplenomegaly. No guarding or rebound. 7.MSK: Normocephalic/Atraumatic, Extremities w/o deformity or ttp No cyanosis or clubbing, Normal movement of all extremities 8.Skin: Warm, Dry. No rashes or lesions. 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 Sensation grossly intact, no focal neurologic deficits. 10.Psych: (AAO) x3. Appropriate mood and affect Course Vital Signs Vital signs: Vital Signs Temperature 36.9 C 12/26/23 22:01 Pulse 50 L 12/26/23 22:01 Respiratory Rate 16 12/26/23 22:01 Blood Pressure 120/64 12/26/23 22:01 Pulse Oximetry 99 12/26/23 22:01 Temperature 36.9 C 12/26/23 22:01 Temperature Source Tympanic 12/26/23 22:01 Pulse 50 L 12/26/23 22:01 Respiratory Rate 16 12/26/23 22:01 Blood Pressure 120/64 12/26/23 22:01 Blood Pressure Position Standing 12/26/23 22:01 Pulse Oximetry 99 12/26/23 22:01 Oxygen Delivery Method Room Air 12/26/23 22:01 Oxygen Flow Rate 0 12/26/23 22:01 Pain Level 8 12/26/23 22:01 Medical Decision Making This is a very pleasant 28-year-old male with a past medical history of riki West Nile virus in 2014 leading to subsequent bladder/urinary challenges which eventually led to incomplete voiding leading to regular self- catheterization, mild reactive airway disease, spastic paraparesis, a history of meningeal encephalitis, oppositional defiant disorder, ADHD, prior gastrostomy. Who presents today for evaluation of right upper right lower tooth pain. Pain has been present for the last 6 months in his teeth, and is gradually been worsening. He is not on any antibiotics. He denies fever or chills or difficulty breathing or drinking or eating. He denies any difficulty swallowing. No fever at home. He has not seen a dentist secondary to a lack of insurance. He has been taking Tylenol without significant improvement. No other complaints at this time. Exam demonstrates poor dentition in the right upper and right lower dental de [place]. Symptoms likely secondary to mild pulpitis. No periapical abscess. No evidence of Ludewig's angina, abscess or other abnormalities. Patient is otherwise hemodynamically stable. I did offer dental block to the patient which she has declined. We will start the patient on amoxicillin 500 mg 3 times daily, recommend Tylenol and Motrin, and we will give him a dental sheet for home use. Discussed red flags for which to return. I have extensively reviewed the treatment plan and discharge instructions with the patient. I have addressed all patient concerns at this time. The patient was made aware of what symptoms to monitor for that would warrant a return to the emergency department. Discussed the plan with the patient, they demonstrate verbal understanding and agreement with our assessment and plan at this time. The documentation in this chart was dictated using [employer] dictation software. Please excuse any dictation errors. 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 Housing: apartment Do you feel safe at home: Yes Do you feel safe in your relationship?: Yes
[2023-12-26] MEDS: Ibuprofen 800 MG TAB PO (22:47)
[2023-12-26] MEDS: Amoxicillin 500 MG CAP PO (22:47)
== END 2023-12-26 22:48 | disposition home or self-care (01) ==
PROVIDERS: Emergency Provider Student in an Organized Health Care Education/Training Program; PCP Family Medicine
DX: R68.84 Jaw pain (principal); K08.89 Other specified disorders of teeth and supporting structures
CPT/HCPCS: 99283